=== PATIENT | female | born 1935 | race Caucasian/White ===

== ENCOUNTER 2019-09-06 10:46 | Inpatient (IN) | payer MEDICARE ==
[2019-09-06] MEDS ORDERED: NITROGLYCERIN OINT 1 INCH/GM PACKET TOPICAL STA (11:51)
[2019-09-06] MEDS ORDERED: ASPIRIN 81 MG PO STA (11:51)
--- NOTE | 2019-09-06 11:54 | ED ---
General Adult HPI - General Chief complaint: Recheck/Abnormal Lab/Rx Stated complaint: lab recheck-heart concerns Time Seen by Provider: 09/06/19 11:39 Source: patient, RN notes reviewed Mode of arrival: ambulatory Limitations: no limitations - History of Present Illness Initial comments: Patient is a pleasant 84-year-old female presenting to the emergency department after advised by her doctor. Patient states she had discomfort for several hours across her chest almost a week ago. Patient states no symptoms since that time. Patient states she saw her doctor yesterday and lab tests were done. Patient was called this morning and advised to come to emergency department. Patient is currently symptom-free. Patient does have some occasional neck discomfort however this is chronic and unchanged. No dyspnea, nausea, or diaphoresis. No leg pain or leg swelling. - Related Data Allergies Allergy/AdvReac Type Severity Reaction Status Date / Time eye drops Allergy Swelling Uncoded 09/06/19 11:40 Review of Systems ROS Statement: Those systems with pertinent positive or pertinent negative responses have been documented in the HPI. ROS Other: All systems not noted in ROS Statement are negative. Constitutional: Denies: fever Eyes: Denies: eye pain ENT: Denies: ear pain Respiratory: Denies: cough, dyspnea Cardiovascular: Reports: as per HPI Endocrine: Denies: fatigue Gastrointestinal: Denies: abdominal pain Genitourinary: Denies: dysuria Musculoskeletal: Denies: back pain Skin: Denies: rash Neurological: Denies: headache Past Medical History Past Medical History: No Reported History History of Any Multi-Drug Resistant Organisms: None Reported Past Surgical History: Cholecystectomy Past Psychological History: No Psychological Hx Reported Smoking Status: Never smoker Past Alcohol Use History: None Reported Past Drug Use History: None Reported General Exam Limitations: no limitations General appearance: alert, in no apparent distress Head exam: Present: normocephalic Eye exam: Present: normal appearance, PERRL ENT exam: Present: normal oropharynx Neck exam: Present: normal inspection Respiratory exam: Present: normal lung sounds bilaterally. Absent: chest wall tenderness Cardiovascular Exam: Present: regular rate, normal rhythm Expanded Peripheral pulses: 2+: Radial (R), Radial (L), Posterior Tibialis (R), Posterior Tibialis (L), Dorsalis Pedis (R), Dorsalis Pedis (L) GI/Abdominal exam: Present: soft. Absent: distended, tenderness Extremities exam: Present: normal inspection. Absent: pedal edema, calf tenderness Back exam: Present: normal inspection Neurological exam: Present: alert Psychiatric exam: Present: normal affect, normal mood Skin exam: Present: normal color Course Vital Signs 09/06/19 09/06/19 09/06/19 11:36 11:57 12:00 Temperature 98.0 F Pulse Rate 69 54 L 55 L Respiratory 20 14 16 Rate Blood Pressure 127/69 159/73 159/73 O2 Sat by Pulse 97 96 Oximetry 09/06/19 09/06/19 09/06/19 12:30 12:36 13:00 Temperature Pulse Rate 73 59 L 59 L Respiratory 18 16 15 Rate Blood Pressure 159/71 157/76 O2 Sat by Pulse 96 97 96 Oximetry - Reevaluation(s) Reevaluation #1: 09/06/19 13:32 Case was discussed with Dr. Jones, who will admit. EKG Findings - EKG Comments: EKG Findings:: Normal sinus rhythm 62. LA 132. QRS 90. QT 404. QTC 410. Normal axis. Normal QRS. Borderline ST depression laterally Medical Decision Making - Medical Decision Making Patient reevaluated and resting comfortably in bed. Patient updated on results and plan. Dr. Hardin has been paged for admission covering for hospital call. Cardiology will be placed on consult. - Lab Data Result diagrams: 09/06/19 11:57 09/06/19 11:57 Lab Results 09/06/19 09/06/19 09/06/19 Range/Units 11:57 11:57 11:57 WBC 5.9 (3.8-10.6) k/uL RBC 4.45 (3.80-5.40) m/uL Hgb 14.1 (11.4-16.0) gm/dL Hct 42.8 (34.0-46.0) % MCV 96.2 (80.0-100.0) fL MCH 31.8 (25.0-35.0) pg MCHC 33.0 (31.0-37.0) g/dL RDW 11.6 (11.5-15.5) % Plt Count 275 (150-450) k/uL Neutrophils % 62 % Lymphocytes % 27 % Monocytes % 7 % Eosinophils % 1 % Basophils % 1 % Neutrophils # 3.7 (1.3-7.7) k/uL Lymphocytes # 1.6 (1.0-4.8) k/uL Monocytes # 0.4 (0-1.0) k/uL Eosinophils # 0.1 (0-0.7) k/uL Basophils # 0.0 (0-0.2) k/uL PT 9.6 (9.0-12.0) sec INR 0.9 (<1.2) APTT 23.3 (22.0-30.0) sec D-Dimer 0.62 H (<0.60) mg/L FEU Sodium 139 (137-145) mmol/L Potassium 4.3 (3.5-5.1) mmol/L Chloride 104 (98-107) mmol/L Carbon Dioxide 28 (22-30) mmol/L Anion Gap 7 mmol/L BUN 14 (7-17) mg/dL Creatinine 0.86 (0.52-1.04) mg/dL Est GFR (CKD-EPI)AfAm 72 (>60 ml/min/1.73 sqM) Est GFR (CKD-EPI)NonAf 63 (>60 ml/min/1.73 sqM) Glucose 99 (74-99) mg/dL Calcium 9.7 (8.4-10.2) mg/dL Total Bilirubin 0.9 (0.2-1.3) mg/dL AST 34 (14-36) U/L ALT 20 (4-34) U/L Alkaline Phosphatase 92 (38-126) U/L Troponin I (0.000-0.034) ng/mL Total Protein 7.4 (6.3-8.2) g/dL Albumin 4.3 (3.5-5.0) g/dL 09/06/19 Range/Units 11:57 WBC (3.8-10.6) k/uL RBC (3.80-5.40) m/uL Hgb (11.4-16.0) gm/dL Hct (34.0-46.0) % MCV (80.0-100.0) fL MCH (25.0-35.0) pg MCHC (31.0-37.0) g/dL RDW (11.5-15.5) % Plt Count (150-450) k/uL Neutrophils % % Lymphocytes % % Monocytes % % Eosinophils % % Basophils % % Neutrophils # (1.3-7.7) k/uL Lymphocytes # (1.0-4.8) k/uL Monocytes # (0-1.0) k/uL Eosinophils # (0-0.7) k/uL Basophils # (0-0.2) k/uL PT (9.0-12.0) sec INR (<1.2) APTT (22.0-30.0) sec D-Dimer (<0.60) mg/L FEU Sodium (137-145) mmol/L Potassium (3.5-5.1) mmol/L Chloride (98-107) mmol/L Carbon Dioxide (22-30) mmol/L Anion Gap mmol/L BUN (7-17) mg/dL Creatinine (0.52-1.04) mg/dL Est GFR (CKD-EPI)AfAm (>60 ml/min/1.73 sqM) Est GFR (CKD-EPI)NonAf (>60 ml/min/1.73 sqM) Glucose (74-99) mg/dL Calcium (8.4-10.2) mg/dL Total Bilirubin (0.2-1.3) mg/dL AST (14-36) U/L ALT (4-34) U/L Alkaline Phosphatase (38-126) U/L Troponin I 1.130 H* (0.000-0.034) ng/mL Total Protein (6.3-8.2) g/dL Albumin (3.5-5.0) g/dL - Radiology Data Radiology results: image reviewed (Chest x-ray shows mild hyperinflation. Left suprahilar nodularity.) Critical Care Time Critical Care Time: Yes Total Critical Care Time: 31 Disposition Clinical Impression: NSTEMI (non-ST elevated myocardial infarction) Disposition: ADMITTED IP TO THIS [facility] Condition: Serious Is patient prescribed a controlled substance at d/c from ED?: No Referrals: Bryon Gao DO [Primary Care Provider] - 1-2 days Decision Time: 13:25
[2019-09-06 12:17] LABS: Basophils % (A) 1 %; Eosinophils # (A) 0.1 k/uL (0-0.7); Eosinophils % (A) 1 %; HCT 42.8 % (34.0-46.0); HGB 14.1 gm/dL (11.4-16.0); Lymphocytes # (A) 1.6 k/uL (1.0-4.8); Lymphocytes % (A) 27 %; MCH 31.8 pg (25.0-35.0); MCV 96.2 fL (80.0-100.0); Mean Platelet Volume 7.5; Monocytes # (A) 0.4 k/uL (0-1.0); Monocytes % (A) 7 %; Neutrophils # (A) 3.7 k/uL (1.3-7.7); Neutrophils % (A) 62 %; Platelet Count 275 k/uL (150-450); RBC 4.45 m/uL (3.80-5.40); RDW 11.6 % (11.5-15.5); WBC 5.9 k/uL (3.8-10.6)
[2019-09-06 12:26] LABS: Albumin 4.3 g/dL (3.5-5.0); Calcium 9.7 mg/dL (8.4-10.2); Potassium 4.3 mmol/L (3.5-5.1); Total Bilirubin 0.9 mg/dL (0.2-1.3); Total Protein 7.4 g/dL (6.3-8.2)
[2019-09-06 12:31] LABS: INR 0.9 (<1.2); Partial Thromboplastin Time 23.3 sec (22.0-30.0); Prothrombin Time 9.6 sec (9.0-12.0)
[2019-09-06 12:34] LABS: D-Dimer 0.62 mg/L FEU (<0.60)
--- NOTE | 2019-09-06 12:53 | XR ---
EXAMINATION TYPE: XR chest 2V DATE OF EXAM: 09/06/2019 COMPARISON: None HISTORY: 84-year-old female with chest pain TECHNIQUE: PA and lateral views FINDINGS: The heart is upper limits of normal in size. Hyperinflation with increased retrosternal clear space. Atherosclerotic arch calcifications. 6 mm left suprahilar nodularity likely hilar vessel on end. No c onsolidation or pleural effusion. IMPRESSION: 1. Mild hyperinflation could relate to depth of inspiration or underlying emphysema. Clinically corre late. 2. 6 mm nodularity left suprahilar region probably represents a prominent vessel on end. 6-8 week fol low-up recommended to reassess. 3. Otherwise, no acute process seen.
[2019-09-06] MEDS ORDERED: NITROGLYCERIN SL TABS 0.4 MG TAB SUBLINGUAL PRN (13:25)
[2019-09-06] MEDS ORDERED: HEPARIN SODIUM,PORCINE 5,000 UNIT/ML 1 ML VIAL IV ONE (13:25)
[2019-09-06] MEDS ORDERED: HEPARIN SODIUM,PORCINE 5,000 UNIT/ML 1 ML VIAL IV PRN (13:25)
[2019-09-06] MEDS: HEPARIN SOD,PORK IN 0.45% NACL 25,000 UNIT in 0.45% NACL 1 250ML.BAG IV SCH (14:13)
--- NOTE | 2019-09-06 16:32 | P.HPIM ---
History of Present Illness H&P Date: 09/06/19 Chief Complaint: atypical chest pain 84-year-old female with no significant past medical history. Patient comes in upon recommendations from her doctor due to abnormal blood work. She reports that a week ago she experienced atypical chest pain described as crushing pain wrapping around her chest not radiating. Not associated with any dizziness lightheadedness nausea vomiting or shortness of breath. She reported that pain lasted for couple hours she wasn't doing anything specific when she experienced it she rested for a few hours and then went away on its own. This patient is very active she reports mowing her own lawn shoveling snow and doing heavy chores around the house she is always active she volunteers 3 days out of the week. And she never have experienced any chest pain before. She has never had any cardiac workup except for back in 2016 when she thinks she had a stress test that was negative. This pain was a only one episode did not happen again however she went to see her doctor 2 days ago got some blood work done and then she was called today to come to the hospital because of abnormal blood work In the ED her troponins were elevated. EKG showed questionable ST abnormalities in lead V2 and V3 maybe with some depression and in lead L2. Otherwise unremarkable blood work Patient admitted for non-STEMI Review of Systems Pertinent positives as noted in HPI. All other systems were reviewed and are negative Past Medical History Past Medical History: No Reported History History of Any Multi-Drug Resistant Organisms: None Reported Past Surgical History: Cholecystectomy Past Psychological History: No Psychological Hx Reported Smoking Status: Never smoker Past Alcohol Use History: None Reported Past Drug Use History: None Reported - Past Family History Family Family Medical History: No Reported History Medications and Allergies Allergies Allergy/AdvReac Type Severity Reaction Status Date / Time eye drops Allergy Swelling Uncoded 09/06/19 11:40 Physical Exam Vitals: Vital Signs Temp Pulse Resp BP Pulse Ox 09/06/19 13:00 59 L 15 157/76 96 09/06/19 12:36 59 L 16 97 09/06/19 12:30 73 18 159/71 96 09/06/19 12:00 55 L 16 159/73 96 09/06/19 11:57 54 L 14 159/73 97 09/06/19 11:36 98.0 F 69 20 127/69 Intake and Output 09/06/19 09/06/19 09/06/19 06:59 14:59 22:59 Other: Weight 52.163 kg Constitutional: No acute distress, conversant, pleasant Eyes: Anicteric sclerae, moist conjunctiva, no lid-lag Pupils equal round reactive to light ENMT: NC/AT Oropharynx clear, no erythema, exudates Neck: Supple, FROM, no masses, or JVD No carotid bruits No thyromegaly Lungs: Clear to auscultation Clear to percussion Normal respiratory effort, no accessory muscle use Cardiovascular: Heart regular in rate and rhythm, No murmurs, gallops, or rubs No peripheral edema Abdominal: Soft Nontender, no guarding, rebound or rigidity Abdomen moving with respiration Normoactive bowel sounds No hepatomegaly, No splenomegaly No palpable mass No abdominal wall hernia noted Skin: Normal temperature, tone, texture, turgor No induration No subcutaneous nodules No rash, lesions No ulcers Extremities: No digital cyanosis No clubbing Pedal pulses intact and symmetrical Radial pulses intact and symmetrical No calf tenderness Psychiatric: Alert and oriented to person, place and time Appropriate affect fair judgement Neuro Muscles Strength 5/5 in all 4 extremities Sensation to light touch grossly present throughout Cranial nerves II-XII grossly intact No focal sensory deficits Lymphatics: no palpable cervical or supraclavicular , or inguinal lymph nodes Results CBC & Chem 7: 09/06/19 11:57 09/06/19 11:57 Labs: Abnormal Lab Results - Last 24 Hours (Table) 09/06/19 09/06/19 Range/Units 11:57 11:57 D-Dimer 0.62 H (<0.60) mg/L FEU Troponin I 1.130 H* (0.000-0.034) ng/mL Assessment and Plan Assessment: 84-year-old female no significant past medical history comes in due to recent episode of chest pain and elevated troponins suspected to have non-STEMI admitted for cardiac workup with anticipated length of stay less than 2 midnights Plan: An STEMI Atypical chest pain Heparin drip Trend troponins Aspirin and Lipitor Cardiology consult Cardiac monitoring Check lipid panel Nitro when necessary CODE STATUS: Full code DVT prophylaxis: On heparin drip per ACS Discussed with: Patient, ER, RN Anticipated length of stay less than [address]: Home A total of 60 minutes was spent on the care of this complex patient more than 50% of the time was spent in counseling and care coordination.
[2019-09-06] MEDS ORDERED: MELATONIN 3 MG TABLET PO PRN (21:00)
[2019-09-06] MEDS ORDERED: ATORVASTATIN 20 MG TAB PO SCH (21:00)
[2019-09-06] MEDS: NITROGLYCERIN OINT 1 INCH/GM PACKET TOPICAL SCH ×2 (21:17→23:41)
[2019-09-07] MEDS: NITROGLYCERIN OINT 1 INCH/GM PACKET TOPICAL SCH ×3 (05:07→16:21)
[2019-09-07 05:50] LABS: Basophils % (A) 1 %; Eosinophils # (A) 0.1 k/uL (0-0.7); Eosinophils % (A) 2 %; HCT 37.4 % (34.0-46.0); HGB 12.2 gm/dL (11.4-16.0); Lymphocytes # (A) 1.7 k/uL (1.0-4.8); Lymphocytes % (A) 37 %; MCH 31.5 pg (25.0-35.0); MCHC 32.8 g/dL (31.0-37.0); MCV 96.1 fL (80.0-100.0); Mean Platelet Volume 7.3; Monocytes # (A) 0.3 k/uL (0-1.0); Monocytes % (A) 6 %; Neutrophils # (A) 2.4 k/uL (1.3-7.7); Neutrophils % (A) 52 %; Platelet Count 225 k/uL (150-450); RBC 3.89 m/uL (3.80-5.40); RDW 11.7 % (11.5-15.5); WBC 4.6 k/uL (3.8-10.6)
[2019-09-07 06:33] LABS: Albumin 3.2 g/dL (3.5-5.0); Calcium 8.5 mg/dL (8.4-10.2); Potassium 3.9 mmol/L (3.5-5.1); Total Bilirubin 0.8 mg/dL (0.2-1.3); Total Protein 5.7 g/dL (6.3-8.2)
[2019-09-07] MEDS ORDERED: NITROGLYCERIN SL TABS 0.4 MG TAB SUBLINGUAL PRN ×2 (08:50→10:41)
[2019-09-07] MEDS ORDERED: ASPIRIN 325 MG TAB PO STA (08:50)
[2019-09-07] MEDS ORDERED: ALPRAZolam 0.25 MG TAB PO PRN (08:50)
[2019-09-07] MEDS ORDERED: ALPRAZolam 0.5 MG TAB PO PRN (08:50)
[2019-09-07] MEDS ORDERED: ATORVASTATIN 80 MG TAB PO STA (08:50)
[2019-09-07] MEDS ORDERED: SODIUM CHLORIDE 0.9% 1,000 ML in EMPTY BAG 1 BAG IV ONE (08:50)
--- NOTE | 2019-09-07 08:50 | P.CRDCN ---
History of Present Illness Consult date: 09/07/19 Requesting physician: Enedelia Tee Consult reason: non-Q-wave OR Chief complaint: Chest pain History of present illness: This is a pleasant 84-year-old female with a documented history of hypertension, no diabetes, no hyperlipidemia, nonsmoker, who has been quite active. She does take lisinopril at home when needed, if her blood pressure is accelerated. She states that on Thursday of last week she had chest pressure and heaviness that radiated across her chest and into her bilateral axillae area, and both arms. The symptoms came and went throughout the day on Thursday and she had some mild symptoms on Thursday. According to the patient, she was watching TV and they were describing the symptoms of a heart attack. Initially she thought her symptoms may be related to neck or back discomfort, but after seeing the commercial she decided to go and see her primary care physician. He advised that she come to the emergency room for further evaluation and treatment. Her initial EKG on presentation here showed a normal sinus rhythm with nonspecific ST-T wave changes in the inferior leads. Blood pressure 134/60 with a heart rate in the 50s to 60s, 97% on room air. White blood cell count 4.6, hemoglobin 12.2, platelet count 225. D-dimer 0.6. Sodium 139, potassium 3.9, BUN 14, creatinine 0.8. Troponins 1.1, 0.9, 0.9. Cholesterol 195, LDL 138, HDL 42, triglycerides 74. At the time of my examination this morning in the emergency room patient is chest pain-free. Past Medical History Past Medical History: No Reported History History of Any Multi-Drug Resistant Organisms: None Reported Past Surgical History: Cholecystectomy Past Psychological History: No Psychological Hx Reported Smoking Status: Never smoker Past Alcohol Use History: None Reported Past Drug Use History: None Reported - Past Family History Family Family Medical History: No Reported History Medications and Allergies Home Medications Medication Instructions Recorded Confirmed Type Aspirin EC [Ecotrin Low Dose] 81 mg PO DAILY 09/06/19 09/06/19 History Calcium Carbonate [Calcium] 600 mg PO HS 09/06/19 09/06/19 History Fish Oil W/Vitamin D3(Unknown Dose) 1 cap PO DAILY 09/06/19 09/06/19 History Garlic 1 tab PO DAILY 09/06/19 09/06/19 History Lisinopril [Prinivil] 10 mg PO HS 09/06/19 09/06/19 History Allergies Allergy/AdvReac Type Severity Reaction Status Date / Time eye drops Allergy Swelling Uncoded 09/06/19 16:58 Physical Exam Vitals: Vital Signs Temp Pulse Pulse Resp BP BP Pulse Ox 09/07/19 03:14 53 L 16 134/65 97 09/07/19 00:00 66 16 158/78 99 09/06/19 21:12 97 09/06/19 20:00 97.4 F L 67 16 163/78 97 09/06/19 18:31 72 18 139/73 97 09/06/19 13:00 59 L 15 157/76 96 09/06/19 12:36 59 L 16 97 09/06/19 12:30 73 18 159/71 96 09/06/19 12:00 55 L 16 159/73 96 09/06/19 11:57 54 L 14 159/73 97 09/06/19 11:36 98.0 F 69 20 127/69 Intake and Output 09/06/19 09/07/19 09/07/19 22:59 06:59 14:59 Intake Total 39.751 49.465 Balance 39.751 49.465 Intake: Intake, IV Titration 39.751 49.465 Amount Heparin Sod,Pork in 0.45% 39.751 49.465 NaCl 25,000 unit In 0.45 % NaCl 1 250ml.bag @ 12 UNITS/KG/HR 6.26 mls/hr IV .Q24H [facility] Rx#: [id number] Other: # Voids 1 1 PHYSICAL EXAMINATION: GENERAL: 84-year-old female in no acute distress at the time of my examination HEENT: Head is atraumatic, normocephalic. Pupils equal, round. Sclera anicteric. Conjunctiva are clear. Mucous membranes of the mouth are moist. Neck is supple. There is no elevated jugular venous pressure. No carotid bruit is heard. HEART EXAMINATION: Heart S1, S2 normal. No murmur or gallop heard. CHEST EXAMINATION: Lungs are clear to auscultation and precussion. No chest wall tenderness is noted on palpation or with deep breathing. ABDOMEN: Soft, nontender. Bowel sounds are heard. No organomegaly noted. EXTREMITIES: 2+ peripheral pulses with no evidence of peripheral edema and no calf tenderness noted. NEUROLOGIC patient is awake, alert and oriented 3 . . Results 09/07/19 05:30 09/07/19 05:30 Cardiac Enzymes 09/06/19 09/06/19 09/06/19 Range/Units 11:57 11:57 19:34 AST 34 (14-36) U/L Troponin I 1.130 H* 0.987 H* (0.000-0.034) ng/mL 09/07/19 09/07/19 Range/Units 00:15 05:30 AST 27 (14-36) U/L Troponin I 0.912 H* (0.000-0.034) ng/mL Coagulation 09/06/19 09/06/19 09/07/19 Range/Units 11:57 19:34 02:39 PT 9.6 (9.0-12.0) sec APTT 23.3 74.9 H 48.8 H (22.0-30.0) sec 09/07/19 Range/Units 05:30 PT (9.0-12.0) sec APTT 45.2 H (22.0-30.0) sec Lipids 09/07/19 Range/Units 05:30 Triglycerides 74 (<150) mg/dL Cholesterol 195 (<200) mg/dL HDL Cholesterol 42 (40-60) mg/dL CBC 09/06/19 09/07/19 Range/Units 11:57 05:30 WBC 5.9 4.6 (3.8-10.6) k/uL RBC 4.45 3.89 (3.80-5.40) m/uL Hgb 14.1 12.2 (11.4-16.0) gm/dL Hct 42.8 37.4 (34.0-46.0) % Plt Count 275 225 (150-450) k/uL Comprehensive Metabolic Panel 09/06/19 09/07/19 Range/Units 11:57 05:30 Sodium 139 139 (137-145) mmol/L Potassium 4.3 3.9 (3.5-5.1) mmol/L Chloride 104 110 H (98-107) mmol/L Carbon Dioxide 28 24 (22-30) mmol/L BUN 14 14 (7-17) mg/dL Creatinine 0.86 0.81 (0.52-1.04) mg/dL Glucose 99 91 (74-99) mg/dL Calcium 9.7 8.5 (8.4-10.2) mg/dL AST 34 27 (14-36) U/L ALT 20 16 (4-34) U/L Alkaline Phosphatase 92 69 (38-126) U/L Total Protein 7.4 5.7 L (6.3-8.2) g/dL Albumin 4.3 3.2 L (3.5-5.0) g/dL Current Medications Generic Name Dose Route Start Last Admin Trade Name Freq PRN Reason Stop Dose Admin Aspirin 325 mg 09/07/19 09:00 Aspirin PO DAILY [facility] Atorvastatin Calcium 20 mg 09/06/19 21:00 09/06/19 21:18 Lipitor PO Not Given HS [facility] Heparin Sodium (Porcine) 0 unit 09/06/19 13:25 Heparin IV Q6HR PRN Low PTT Protocol Heparin Sodium/Sodium Chloride 250 mls @ 6.26 mls/hr 09/06/19 13:30 09/07/19 06:03 25,000 unit/ Sodium Chloride IV 10 units/kg/hr .Q24H [facility] 5.216 mls/hr Titration Protocol 12 UNITS/KG/HR Melatonin 3 mg 09/06/19 21:00 Melatonin PO HS PRN Insomnia Nitroglycerin 0.4 mg 09/06/19 13:25 Nitrostat SUBLINGUAL Q5M PRN Chest Pain Nitroglycerin 1 inch 09/06/19 18:00 09/07/19 05:07 Nitro-Bid Oint TOPICAL Not Given Q6HR [facility] Sodium Chloride 10 ml 09/06/19 21:00 09/06/19 21:18 Saline Flush IV 10 ml BID DANILO Administration Intake and Output 09/06/19 09/07/19 09/07/19 22:59 06:59 14:59 Intake Total 39.751 49.465 Balance 39.751 49.465 Intake: Intake, IV Titration 39.751 49.465 Amount Heparin Sod,Pork in 0.45% 39.751 49.465 NaCl 25,000 unit In 0.45 % NaCl 1 250ml.bag @ 12 UNITS/KG/HR 6.26 mls/hr IV .Q24H [facility] Rx#: [id number] Other: # Voids 1 1 09/07/19 05:30 09/07/19 05:30 EKG Interpretations (text) EKG shows a normal sinus rhythm with nonspecific ST-T wave changes noted in the inferior leads Assessment and Plan Plan: Assessment and plan #1 non-ST elevation OR #2 hypertension Plan Patient has been advised to undergo cardiac catheterization, the risks and the benefits of the procedure were explained to the patient in detail and she is willing to proceed. We will obtain an echocardiogram with Doppler study. Continue an aspirin daily, Lipitor, IV heparin, and Nitropaste. Further recommendations will be based on the findings of her procedure and the patient's clinical course. DNP note has been reviewed, I agree with a documented findings and plan of care. Patient was seen and examined.
[2019-09-07] MEDS ORDERED: VERAPAMIL 2.5 MG/ML 2 ML AMP ONE (09:08)
[2019-09-07] MEDS ORDERED: LIDOCAINE 1% INJ 10MG/ML (20 ML MDV) ONE (09:08)
[2019-09-07] MEDS: MIDAZOLAM 2 MG/2 ML VIAL IV ONE ×2 (09:51→09:54)
[2019-09-07] MEDS ORDERED: LIDOCAINE 1% INJ 10MG/ML (20 ML MDV) SQ ONE (09:54)
[2019-09-07] MEDS ORDERED: BIVALIRUDIN BOLUS 250 MG/50 ML IV ONE (10:12)
[2019-09-07] MEDS ORDERED: BIVALIRUDIN 250 MG in SODIUM CHLORIDE 0.9% 50 ML IV ONE (10:13)
[2019-09-07] MEDS ORDERED: IV FLUID CONTINUATION 800 ML IV ONE (10:14)
[2019-09-07] MEDS: NITROGLYCERIN 1000MCG/10ML SYRINGE INTRACORON ONE ×2 (10:19→10:32)
[2019-09-07] MEDS ORDERED: CLOPIDOGREL 75 MG TAB ONE (10:21)
[2019-09-07] MEDS ORDERED: IOPAMIDOL-370 125ML BTL INJ ONE (10:25)
[2019-09-07] MEDS ORDERED: CLOPIDOGREL 75 MG TAB PO ONE (10:25)
[2019-09-07] MEDS ORDERED: IOPAMIDOL-370 100ML BTL INJ ONE (10:30)
[2019-09-07] MEDS ORDERED: ZOLPIDEM 5 MG TAB PO PRN (10:41)
[2019-09-07] MEDS ORDERED: RX INFO: IV CONTRAST WAS GIVEN 1 EACH MISC MISCELLANE PRN (10:41)
[2019-09-07] MEDS ORDERED: MAG HYDROX/AL HYDROX/SIMETH 30 ML CUP PO PRN (10:41)
[2019-09-07] MEDS ORDERED: ATROPINE SULFATE 0.1 MG/ML 10ML SYRINGE IV PRN (10:41)
[2019-09-07] MEDS ORDERED: SODIUM CHLORIDE 0.9% 1,000 ML IV SCH (10:45)
--- NOTE | 2019-09-07 10:57 | ECHOF ---
Referral Reason:nstemi MEASUREMENTS -------- HEIGHT: 152.4 cm WEIGHT: 52.2 kg BP: 157/76 RVIDd: 3.0 cm (< 3.3) IVSd: 1.1 cm (0.6 - 1.1) LVIDd: 4.0 cm (3.9 - 5.3) LVPWd: 1.2 cm (0.6 - 1.1) IVSs: 1.4 cm LVIDs: 2.5 cm LVPWs: 1.6 cm LAESV Index (A-L): 32.30 ml/m Ao Diam: 2.9 cm (2.0 - 3.7) AV Cusp: 1.5 cm (1.5 - 2.6) MV E Arvin: 0.85 m/s MV DecT: 237 ms MV A Arvin: 0.93 m/s MV E/A Ratio: 0.91 RAP: 5.00 mmHg RVSP: 41.24 mmHg FINDINGS -------- Sinus rhythm. This was a technically adequate study. The left ventricular size is normal. There is mild concentric left ventricular hypertrophy. Overa ll left ventricular systolic function is normal with, an EF between 55 - 60 %. The diastolic fillin g pattern is normal for the age of the patient 12.34. The right ventricle is mildly enlarged. LA is midly dilated 29-33ml/m2. The right atrial size is normal. Interatrial and interventricular septum intact. There is mild aortic valve sclerosis. There is no evidence of aortic regurgitation. There is no e vidence of aortic stenosis. Moderate mitral regurgitation is present. [id number] tricuspid regurgitation present. There is mild to moderate pulmonary hypertension. The right ventricular systolic pressure, as measured by Doppler, is 41.24mmHg. The pulmonic valve was not well visualized. There is no pulmonic regurgitation present. The aortic root size is normal. IVC Not well visulized. There is no pericardial effusion. CONCLUSIONS -------- 1. Sinus rhythm. 2. This was a technically adequate study. 3. The left ventricular size is normal. 4. There is mild concentric left ventricular hypertrophy. 5. Overall left ventricular systolic function is normal with, an EF between 55 - 60 %. 6. The diastolic filling pattern is normal for the age of the patient 12.34 7. The right ventricle is mildly enlarged. 8. LA is midly dilated 29-33ml/m2. 9. The right atrial size is normal. 10. Interatrial and interventricular septum intact. 11. There is mild aortic valve sclerosis. 12. There is no evidence of aortic regurgitation. 13. There is no evidence of aortic stenosis. 14. Moderate mitral regurgitation is present. 15. [id number] tricuspid regurgitation present. 16. There is mild to moderate pulmonary hypertension. 17. The right ventricular systolic pressure, as measured by Doppler, is 41.24mmHg. 18. The pulmonic valve was not well visualized. 19. There is no pulmonic regurgitation present. 20. The aortic root size is normal. 21. IVC Not well visulized. 22. There is no pericardial effusion. PHYSICIAN SCRIBE: Daisha Goyal RDCS
--- NOTE | 2019-09-07 11:19 | CC ---
CARDIAC CATHETERIZATION REPORT CARDIAC CATHETERIZATION AND PERCUTANEOUS CORONARY INTERVENTION: DATE OF SERVICE: September 07, 2019 PERFORMING PHYSICIAN: Yo Hilliard MD. PROCEDURE PERFORMED: 1. Selective right and left coronary angiogram. 2. Left heart catheterization. 3. Successful stenting of the first obtuse marginal branch of the left circumflex using 2.5 x 12 mm Xience RAPHAEL with excellent angiographic results and reduction of stenosis from 99% to 0%. 4. Successful stenting of the proximal left circumflex using 3.25 x 15 mm Xience RAPHAEL with excellent angiographic results and reduction of stenosis from 90% to 0%. INDICATION: This is an 84-year-old female patient with history of hypertension and dyslipidemia who presented to the emergency room with a chest discomfort and ruled in for acute non-ST- elevation myocardial infarction. She was brought today to undergo a heart catheterization. The patient is an 84-year-old, but she is in great physical and mental shape. APPROACH: Right common femoral artery. COMPLICATION: None. LEVEL OF SEDATION: Moderate with sedation length of 43 minutes. PROCEDURE DESCRIPTION: After obtaining an informed consent, the patient was brought to the cardiac collaborating supervising physician. The right common femoral artery was cannulated using micropuncture technique, the micropuncture wire passed easily then I placed a 6-Lao sheath in the right groin. After that I did selective right and left coronary angiogram. That was performed using a Alexsander right catheter for the right coronary artery and JL3.5 for the left coronary system. After that I did left heart catheterization using 6-Lao pigtail catheter. After that I did intervene on the left circumflex, please see a separate paragraph for that. SELECTIVE CORONARY ANGIOGRAM: 1. The right coronary artery is a large caliber vessel and it is a dominant vessel. The RCA has intermediate disease in the midportion. Distally, it bifurcates into PDA and PLV branches both appeared to be angiographically normal. 2. The left main is angiographically normal. It bifurcates into left circumflex and left anterior descending artery. 3. The left circumflex is a large caliber vessel and it is a nondominant vessel. The proximal left circumflex has a critical lesion appeared to be in the range of 80% to 90%. This is by the bifurcation of the first OM branch which has a lesion appeared to be in the range of 99.9%. The mid circumflex gives rise into a second OM branch which appeared to have mild disease only and the circumflex continues after that in the AV groove bypass as a small caliber vessel with a tight lesion as well. 4. The LAD: The proximal LAD by the bifurcation from the left main has a critical lesion appeared to be in the range of 80% to 90%. The mid LAD has long tubular lesion appeared to be in the range of 80%. The LAD distally has another lesion as well, appeared to be in the range of 70% to 80%. HEMODYNAMICS: The LVEDP was was 4 mmHg without significant gradient across aortic valve. PCI OF THE LEFT CIRCUMFLEX: Anticoagulation was achieved with Angiomax with bolus and drip per protocol. Subsequently I did engage the left main using JL3.5 guide. I did wire the OM1 using a whisper wire. After that balloon angioplasty was performed using 2.0 x 12 mm balloon before I deployed 2.5 x 12 mm Xience RAPHAEL where the stent was positioned under fluoroscopy guidance and deployed under its nominal pressure with the following angiogram showing good angiographic results. Subsequently, I redirected my wire toward the left circumflex and then OM2. I did direct stenting of the lesion in the proximal left circumflex across OM1 using 3.25 x 15 mm Xience where the stent was positioned under fluoroscopy guidance and deployed under its nominal pressure. I postdilated the stent using 3.25 mm NC balloon. The final angiogram showed great angiographic results and the procedure was completed without any complication. CONCLUSION: 1. Critical 2-vessel coronary artery disease involving the left circumflex as well as left anterior descending artery. 2. Successful stenting of the left circumflex as well as first obtuse marginal branch as described above. 3. The patient will be brought to undergo a PCI of the LAD in the next 24 to 48 hours. POSTPROCEDURE MANAGEMENT: 1. Dual antiplatelet therapy. 2. Risk factor modifications. 3. Follow up with the patient. MMODL / IJN: [id number] /
--- NOTE | 2019-09-07 13:35 | P.PN ---
Subjective Progress Note Date: 09/07/19 Principal diagnosis: follow up for NSTEMI Patient seen and examined post left heart cath tolerated procedure well patient had 2 stents inserted Again she denies any chest pain or trouble breathing Tolerated by mouth intake Objective - Vital Signs Vital signs: Vital Signs Temp 97.4 F L 09/06/19 20:00 Pulse 57 L 09/07/19 13:16 Resp 16 09/07/19 11:26 BP 112/56 09/07/19 13:16 Pulse Ox 94 L 09/07/19 11:26 Intake & Output 09/06/19 09/07/19 09/07/19 18:59 06:59 18:59 Intake Total 89.216 112 Balance 89.216 112 Weight 52.163 kg Intake: IV 112 Intake, IV Titration 89.216 Amount Heparin Sod,Pork in 0.45% 89.216 NaCl 25,000 unit In 0.45 % NaCl 1 250ml.bag @ 12 UNITS/KG/HR 6.26 mls/hr IV .Q24H [facility] Rx#: [id number] Other: # Voids 1 - Exam Constitutional: vital signs stable, Not in acute distress, pleasant, conversant Lungs: Clear to auscultation bilaterally, clear to percussion, normal respiratory effort Cardiovascular: Regular rate and rhythm, no murmurs, no gallops, no rubs, no peripheral edema Gastrointestinal: Soft, no tenderness to palpation, bowel sounds positive, Extremities: No digital cyanosis or clubbing, peripheral pulses palpable and e qual , no calf muscle tenderness Psych: Alert, oriented to place, person and time, appropriate affect, intact judgment - Labs CBC & Chem 7: 09/07/19 05:30 09/07/19 05:30 Labs: Abnormal Lab Results - Last 24 Hours (Table) 09/06/19 09/06/19 09/07/19 Range/Units 19:34 19:34 00:15 APTT 74.9 H (22.0-30.0) sec Chloride (98-107) mmol/L Troponin I 0.987 H* 0.912 H* (0.000-0.034) ng/mL Total Protein (6.3-8.2) g/dL Albumin (3.5-5.0) g/dL LDL Cholesterol, Calc (0-99) mg/dL 0209/07/19 09/07/19 Range/Units 02:39 05:30 05:30 APTT 48.8 H 45.2 H (22.0-30.0) sec Chloride 110 H (98-107) mmol/L Troponin I (0.000-0.034) ng/mL Total Protein 5.7 L (6.3-8.2) g/dL Albumin 3.2 L (3.5-5.0) g/dL LDL Cholesterol, Calc 138 H (0-99) mg/dL Assessment and Plan Assessment: 84-year-old female no significant past medical history comes in due to recent episode of chest pain and elevated troponins suspected to have non-STEMI admitted for cardiac workup 09/07 Left heart cath showed 2 vessel disease Status post stenting left circumflex and first obtuse Plans for staged stenting of left anterior descending within 24-48 hours Echocardiogram showed left ventricle ejection fraction of 60% Plan: NSTEMI Atypical chest pain Left heart cath showed 2 vessel disease status post stenting of left circumflex and first obtuse Plans for stenting of LAD within 24-48 hours Continue with dual antiplatelet therapy Continue with Lipitor Nitro when necessary Cardiology consult Cardiac monitoring Discharge planning home once cleared by cardiology
[2019-09-07 14:20] VITALS: BMI 22.4
[2019-09-07] MEDS: ASPIRIN 325 MG TAB PO SCH (14:29)
[2019-09-07] MEDS: HEPARIN SOD,PORK IN 0.45% NACL 25,000 UNIT in 0.45% NACL 1 250ML.BAG IV SCH (14:30)
[2019-09-07] MEDS: LATANOPROST 0.005% OPHTH DROPS 2.5 ML BTL BOTH EYES SCH (20:09)
[2019-09-07] MEDS: ATORVASTATIN 80 MG TAB PO SCH (20:10)
[2019-09-07] MEDS: METOPROLOL TARTRATE 25 MG TAB PO SCH (20:10)
[2019-09-08 06:26] LABS: Mean Platelet Volume 7.4; Platelet Count 225 k/uL (150-450)
[2019-09-08] MEDS: CLOPIDOGREL 75 MG TAB PO SCH (08:04)
[2019-09-08] MEDS: ASPIRIN 325 MG TAB PO SCH (08:04)
[2019-09-08] MEDS: METOPROLOL TARTRATE 25 MG TAB PO SCH ×2 (08:04→21:33)
--- NOTE | 2019-09-08 12:02 | P.PN ---
Subjective Progress Note Date: 09/08/19 This is a pleasant 84-year-old female with a documented history of hypertension, no diabetes, no hyperlipidemia, nonsmoker, who has been quite active. She does take lisinopril at home when needed, if her blood pressure is accelerated. She states that on Thursday of last week she had chest pressure and heaviness that radiated across her chest and into her bilateral axillae area, and both arms. The symptoms came and went throughout the day on Thursday and she had some mild symptoms on Thursday. According to the patient, she was watching TV and they were describing the symptoms of a heart attack. Initially she thought her symptoms may be related to neck or back discomfort, but after seeing the commercial she decided to go and see her primary care physician. He advised that she come to the emergency room for further evaluation and treatment. Her initial EKG on presentation here showed a normal sinus rhythm with nonspecific ST-T wave changes in the inferior leads. Blood pressure 134/60 with a heart rate in the 50s to 60s, 97% on room air. White blood cell count 4.6, hemoglobin 12.2, platelet count 225. D-dimer 0.6. Sodium 139, potassium 3.9, BUN 14, creatinine 0.8. Troponins 1.1, 0.9, 0.9. Cholesterol 195, LDL 138, HDL 42, triglycerides 74. At the time of my examination this morning in the emergency room patient is chest pain-free. 09/08/2019 Patient seen and examined this morning, denies any chest pain, no difficulty in breathing. She does state that she feels mildly tired today. Blood pressure 126/60 with a heart rate in the 70s, 98% on room air. Echocardiogram with Doppler study was performed which revealed an ejection fraction of 55-60%. Mild to moderate tricuspid regurg with moderate mitral regurgitation. I did have a lengthy discussion with the patient this morning explaining that we would like to continue to observe her for another 24 hours. If the patient has any symptoms of chest discomfort or exertional shortness of breath, her LAD will be stented during this admission, if the patient remains pain-free until tomorrow at our reevaluation, she may be able to be discharged home and come back electively for LAD stenting with Impella support. Objective - Vital Signs Vital signs: Vital Signs Temp 97.7 F 09/08/19 08:00 Pulse 74 09/08/19 08:00 Resp 18 09/08/19 08:00 BP 126/59 09/08/19 08:00 Pulse Ox 98 09/08/19 08:00 Intake & Output 09/07/19 09/08/19 09/08/19 18:59 06:59 18:59 Intake Total 112 1765 240 Balance 112 1765 240 Weight 52.163 kg 51.7 kg Intake: IV 112 Intake, IV Titration 1525 Amount Sodium Chloride 0.9% 1, 1525 000 ml @ 75 mls/hr IV . [id number] [facility] Rx#:[id number] Oral 240 240 Other: Voiding Method Toilet # Voids 2 3 # Bowel Movements 1 - Exam PHYSICAL EXAMINATION: GENERAL: 84-year-old female in no acute distress at the time of my examination HEENT: Head is atraumatic, normocephalic. Pupils equal, round. Sclera anicteric. Conjunctiva are clear. Mucous membranes of the mouth are moist. N joseph is supple. There is no elevated jugular venous pressure. No carotid bruit is heard. HEART EXAMINATION: Heart S1, S2 normal. No murmur or gallop heard. CHEST EXAMINATION: Lungs are clear to auscultation and precussion. No chest wall tenderness is noted on palpation or with deep breathing. ABDOMEN: Soft, nontender. Bowel sounds are heard. No organomegaly noted. EXTREMITIES: 2+ peripheral pulses with no evidence of peripheral edema and no calf tenderness noted. NEUROLOGIC patient is awake, alert and oriented 3 . . - Labs CBC & Chem 7: 09/08/19 05:45 09/08/19 05:45 Assessment and Plan Plan: Assessment and plan #1 non-ST elevation DE, status post successful stenting of the first obtuse marginal branch of the circumflex and stenting of the proximal circumflex. Patient was also found to have proximal LAD, by the bifurcation, critical lesion in the range of 80-90%. The mid LAD has a long lesion in the range of 80%, distal LAD has another lesion in the range of 70-80% #2 hypertension Plan The patient has been encouraged to be up ambulating today. If she remains symptom-free we will discharge her home tomorrow. If the patient has any symptoms, the LAD will be stented during this admission. It will require Impella support. DNP note has been reviewed, I agree with a documented findings and plan of care. Patient was seen and examined.
[2019-09-08] MEDS ORDERED: ALPRAZolam 0.5 MG TAB PO PRN (15:54)
[2019-09-08] MEDS ORDERED: SODIUM CHLORIDE 0.9% 1,000 ML in EMPTY BAG 1 BAG IV ONE (15:54)
[2019-09-08] MEDS ORDERED: ALPRAZolam 0.25 MG TAB PO PRN (15:54)
[2019-09-08] MEDS ORDERED: ATORVASTATIN 80 MG TAB PO STA (15:54)
[2019-09-08] MEDS ORDERED: ASPIRIN 325 MG TAB PO STA (15:54)
[2019-09-08] MEDS ORDERED: HEPARIN SODIUM,PORCINE 5,000 UNIT/ML 1 ML VIAL IV PRN (15:56)
[2019-09-08] MEDS ORDERED: HEPARIN SOD,PORK IN 0.45% NACL 25,000 UNIT in 0.45% NACL 1 250ML.BAG IV SCH (16:00)
[2019-09-08] MEDS: NITROGLYCERIN SL TABS 0.4 MG TAB SUBLINGUAL PRN ×2 (16:05→16:10)
[2019-09-08 16:13] LABS: Basophils % (A) 0 %; Eosinophils # (A) 0.2 k/uL (0-0.7); Eosinophils % (A) 3 %; HCT 38.5 % (34.0-46.0); HGB 12.6 gm/dL (11.4-16.0); Lymphocytes # (A) 1.1 k/uL (1.0-4.8); Lymphocytes % (A) 18 %; MCH 32.1 pg (25.0-35.0); MCHC 32.6 g/dL (31.0-37.0); MCV 98.6 fL (80.0-100.0); Mean Platelet Volume 8.4; Monocytes # (A) 0.4 k/uL (0-1.0); Monocytes % (A) 6 %; Neutrophils # (A) 4.2 k/uL (1.3-7.7); Neutrophils % (A) 71 %; Platelet Count 229 k/uL (150-450); RBC 3.91 m/uL (3.80-5.40); RDW 11.6 % (11.5-15.5); WBC 5.9 k/uL (3.8-10.6)
[2019-09-08] MEDS ORDERED: HEPARIN SODIUM,PORCINE 5,000 UNIT/ML 1 ML VIAL IV ONE (16:15)
[2019-09-08] MEDS: HEPARIN SODIUM,PORCINE 5,000 UNIT/ML 1 ML VIAL SQ SCH ×2 (16:21→21:33)
[2019-09-08 16:28] LABS: Prothrombin Time 10.2 sec (9.0-12.0)
[2019-09-08] MEDS: NITROGLYCERIN-D5W PMX 50 MG in DEXTROSE/WATER 1 250ML.BAG IV SCH (16:33)
[2019-09-08] MEDS ORDERED: LIDOCAINE 1% INJ 10MG/ML (20 ML MDV) ONE (17:49)
[2019-09-08] MEDS ORDERED: SODIUM CHLORIDE 0.9% 1,000 ML IV ONE (18:00)
[2019-09-08] MEDS ORDERED: MIDAZOLAM 2 MG/2 ML VIAL IV ONE (18:05)
[2019-09-08] MEDS ORDERED: LIDOCAINE 1% INJ 10MG/ML (20 ML MDV) SQ ONE (18:06)
[2019-09-08] MEDS ORDERED: BIVALIRUDIN 250 MG in SODIUM CHLORIDE 0.9% 50 ML IV ONE (18:08)
[2019-09-08] MEDS ORDERED: BIVALIRUDIN BOLUS 250 MG/50 ML IV ONE (18:08)
[2019-09-08] MEDS: NITROGLYCERIN 1000MCG/10ML SYRINGE INTRACORON ONE ×3 (18:10→18:36)
[2019-09-08] MEDS ORDERED: IOPAMIDOL-370 125ML BTL INJ ONE (18:32)
[2019-09-08] MEDS ORDERED: CLOPIDOGREL 75 MG TAB ONE (18:43)
[2019-09-08] MEDS ORDERED: CLOPIDOGREL 75 MG TAB PO ONE (18:44)
[2019-09-08] MEDS ORDERED: IOPAMIDOL-370 100ML BTL INJ ONE (18:47)
[2019-09-08] MEDS ORDERED: ATROPINE SULFATE 0.1 MG/ML 10ML SYRINGE IV PRN (18:53)
[2019-09-08] MEDS ORDERED: MAG HYDROX/AL HYDROX/SIMETH 30 ML CUP PO PRN (18:53)
[2019-09-08] MEDS ORDERED: NITROGLYCERIN SL TABS 0.4 MG TAB SUBLINGUAL PRN (18:53)
[2019-09-08] MEDS ORDERED: RX INFO: IV CONTRAST WAS GIVEN 1 EACH MISC MISCELLANE PRN (18:53)
[2019-09-08] MEDS ORDERED: ZOLPIDEM 5 MG TAB PO PRN (18:53)
[2019-09-08] MEDS ORDERED: SODIUM CHLORIDE 0.9% 1,000 ML IV SCH (19:00)
[2019-09-08] MEDS: LATANOPROST 0.005% OPHTH DROPS 2.5 ML BTL BOTH EYES SCH (21:30)
[2019-09-08] MEDS: ATORVASTATIN 80 MG TAB PO SCH (21:33)
--- NOTE | 2019-09-08 23:57 | CC ---
CARDIAC CATHETERIZATION REPORT DATE OF SERVICE: 09/08/2019 PERFORMING PHYSICIAN: Yo Hilliard MD. PROCEDURES PERFORMED: 1. Selective left coronary angiogram. 2. Left heart catheterization. 3. Successful stenting of the mid left anterior descending artery using 2.0 x 30 mm [place] RAPHAEL with an excellent angiographic result. 4. Successful stenting of the proximal left anterior descending artery using 2.5 x 23 mm Xience RAPHAEL with an excellent angiographic result. INDICATION: This is an 84-year-old female patient who presented to the hospital initially 2 days ago with acute jhl-JC-ytuhlkbcl myocardial infarction. She underwent a heart catheterization and was found to have severe 2-vessel coronary artery disease involving the LCX and LAD. She underwent PCI of OM1 and left circumflex and she was scheduled to undergo a PCI of the LAD tomorrow. Because she continues to have chest discomfort, she was brought today to undergo an intervention on the LAD and also to look to check the stents in the LCX. APPROACH: Right common femoral artery. COMPLICATIONS: None. LEVEL OF SEDATION: Moderate, with sedation length of 41 minutes. PROCEDURE DESCRIPTION: After obtaining informed consent, the patient was brought to the cardiac cath lab technologist. The right common femoral artery was cannulated using micropuncture technique. The micropuncture wire passed easily. Then I placed a 6-Belarusian sheath at the right common femoral artery. After that I did selective left coronary angiogram using JL3.5 guide. After that I did intervene on the LAD. Please see separate paragraph for that. Subsequently I did left heart catheterization using 6-Belarusian pigtail catheter. The procedure was completed without any complication. SELECTIVE CORONARY ANGIOGRAM: 1. The left main is a large-caliber vessel. It is angiographically normal. It bifurcates into LCX and LAD. 2. The LCX is a large-caliber vessel and it is a nondominant vessel. The proximal LCX is stented and the stent is patent. The proximal LCX gives rise to an OM1, which is a large-caliber vessel and seems to be angiographically normal. The mid circumflex appeared to be angiographically normal and gives rise to OM2, which seems to be normal. The circumflex continues after that as a small- to medium- caliber vessel in the AV groove with a tight lesion that appeared to be in the range of 80% to 90%. 3. The LAD. The very proximal LAD appeared to have a lesion in the range of 80% to 90%. The mid LAD has a long tubular lesion in the range of 80% to 90%. The LAD distally appeared to have another lesion in the range of 60% to 70%. PERCUTANEOUS CORONARY INTERVENTION OF THE LAD: Anticoagulation was initiated using Angiomax. The LAD was wired using a Whisper J wire after it was engaged using JL3.5 guide. After that I did balloon angioplasty of the LAD in the mid portion using 2.0 x 12 mm balloon. After that I did stenting of the LAD in the mid portion using 2.0 x 30 mm [place] RAPHAEL where the stent was positioned under fluoroscopic guidance and deployed under its nominal pressure. After that, for the stent in the very proximal LAD, I deployed 2.5 x 23 mm Xience RAPHAEL where the stent was positioned under fluoroscopic guidance and deployed under its nominal pressure as well. I post-dilated the stent using 2.75 mm NC balloon. The following angiogram showed excellent angiographic results. There was a lesion in the distal LAD that appeared to be in the range of 70%. I decided to leave it alone. HEMODYNAMICS: The LVEDP was about 8 mmHg without significant gradient across the aortic valve. CONCLUSION: 1. Patent stents in the proximal left circumflex as well as OM1 of the left circumflex. There was a tight lesion in the distal left circumflex, but the artery is only of small to medium caliber. 2. Successful stenting of the proximal and mid left anterior descending artery with an excellent angiographic result. There is distal lesion in the distal LAD that appeared to be in the range of 70%. POST-PROCEDURE MANAGEMENT: 1. Maximize medical treatment. 2. Follow up with the patient. 3. PCI of the distal LAD as well as distal LCX if the patient continues to be symptomatic. MMODL / IJN: [id number] /
[2019-09-09 06:04] LABS: Basophils % (A) 0 %; Eosinophils # (A) 0.1 k/uL (0-0.7); Eosinophils % (A) 1 %; HGB 11.8 gm/dL (11.4-16.0); Lymphocytes % (A) 20 %; MCH 32.1 pg (25.0-35.0); MCHC 33.7 g/dL (31.0-37.0); MCV 95.3 fL (80.0-100.0); Mean Platelet Volume 7.2; Monocytes # (A) 0.5 k/uL (0-1.0); Monocytes % (A) 10 %; Neutrophils # (A) 3.2 k/uL (1.3-7.7); Neutrophils % (A) 66 %; Platelet Count 235 k/uL (150-450); RBC 3.67 m/uL (3.80-5.40); RDW 11.5 % (11.5-15.5); WBC 4.9 k/uL (3.8-10.6)
[2019-09-09 06:14] LABS: Calcium 8.5 mg/dL (8.4-10.2); Potassium 3.8 mmol/L (3.5-5.1)
[2019-09-09] MEDS: ASPIRIN 325 MG TAB PO SCH (07:54)
[2019-09-09] MEDS: CLOPIDOGREL 75 MG TAB PO SCH (07:54)
[2019-09-09] MEDS: METOPROLOL TARTRATE 25 MG TAB PO SCH ×2 (07:54→20:43)
[2019-09-09] MEDS: HEPARIN SODIUM,PORCINE 5,000 UNIT/ML 1 ML VIAL SQ SCH ×3 (07:56→23:25)
--- NOTE | 2019-09-09 12:26 | P.PN ---
Subjective Progress Note Date: 09/09/19 This is a pleasant 84-year-old female with a documented history of hypertension, no diabetes, no hyperlipidemia, nonsmoker, who has been quite active. She does take lisinopril at home when needed, if her blood pressure is accelerated. She states that on Thursday of last week she had chest pressure and heaviness that radiated across her chest and into her bilateral axillae area, and both arms. The symptoms came and went throughout the day on Thursday and she had some mild symptoms on Thursday. According to the patient, she was watching TV and they were describing the symptoms of a heart attack. Initially she thought her symptoms may be related to neck or back discomfort, but after seeing the commercial she decided to go and see her primary care physician. He advised that she come to the emergency room for further evaluation and treatment. Her initial EKG on presentation here showed a normal sinus rhythm with nonspecific ST-T wave changes in the inferior leads. Blood pressure 134/60 with a heart rate in the 50s to 60s, 97% on room air. White blood cell count 4.6, hemoglobin 12.2, platelet count 225. D-dimer 0.6. Sodium 139, potassium 3.9, BUN 14, creatinine 0.8. Troponins 1.1, 0.9, 0.9. Cholesterol 195, LDL 138, HDL 42, triglycerides 74. At the time of my examination this morning in the emergency room patient is chest pain-free. 09/08/2019 Patient seen and examined this morning, denies any chest pain, no difficulty in breathing. She does state that she feels mildly tired today. Blood pressure 126/60 with a heart rate in the 70s, 98% on room air. Echocardiogram with Doppler study was performed which revealed an ejection fraction of 55-60%. Mild to moderate tricuspid regurg with moderate mitral regurgitation. I did have a lengthy discussion with the patient this morning explaining that we would like to continue to observe her for another 24 hours. If the patient has any symptoms of chest discomfort or exertional shortness of breath, her LAD will be stented during this admission, if the patient remains pain-free until tomorrow at our reevaluation, she may be able to be discharged home and come back electively for LAD stenting with Impella support. 09/09/2019 Patient was taken to the cardiac catheterization lab yesterday because of subsequent chest pain, she underwent stenting of the proximal and mid LAD by Dr. Simmons. Blood pressure 138/60, heart rate in the 60s, 96% on room air. White blood cell count 4.9, hemoglobin 11.8, platelet count 235. Sodium 138, potassium 3.8, BUN 13, creatinine 0.7. Patient was seen and examined this m orning, denied any chest pain, breathing is stable. Objective - Vital Signs Vital signs: Vital Signs Temp 97.8 F 09/09/19 08:00 Pulse 58 L 09/09/19 11:26 Resp 18 09/09/19 11:26 BP 138/65 09/09/19 11:26 Pulse Ox 96 09/09/19 11:26 Intake & Output 09/08/19 09/09/19 09/09/19 18:59 06:59 18:59 Intake Total 650 1500 240 Balance 650 1500 240 Weight 52.2 kg Intake: IV 170 Intake, IV Titration 900 Amount Sodium Chloride 0.9% 1, 900 000 ml @ 75 mls/hr IV . [id number] [facility] Rx#:[id number] Oral 480 600 240 Other: Voiding Method Toilet Toilet Toilet # Voids 3 - Exam PHYSICAL EXAMINATION: GENERAL: 84-year-old female in no acute distress at the time of my examination HEENT: Head is atraumatic, normocephalic. Pupils equal, round. Sclera anicteric. Conjunctiva are clear. Mucous membranes of the mouth are moist. Neck is supple. There is no elevated jugular venous pressure. No carotid b ruit is heard. HEART EXAMINATION: Heart S1, S2 normal. No murmur or gallop heard. CHEST EXAMINATION: Lungs are clear to auscultation and precussion. No chest wall tenderness is noted on palpation or with deep breathing. ABDOMEN: Soft, nontender. Bowel sounds are heard. No organomegaly noted. EXTREMITIES: 2+ peripheral pulses with no evidence of peripheral edema and no calf tenderness noted. Right groin soft, ecchymotic, no hematoma NEUROLOGIC patient is awake, alert and oriented 3 . . - Labs CBC & Chem 7: 09/09/19 05:34 09/09/19 05:34 Labs: Abnormal Lab Results - Last 24 Hours (Table) 02/21/20 02/21/20 Range/Units 05:34 05:34 RBC 3.67 L (3.80-5.40) m/uL Chloride 111 H (98-107) mmol/L Carbon Dioxide 19 L (22-30) mmol/L Assessment and Plan Plan: Assessment and plan #1 non-ST elevation CA, status post successful stenting of the first obtuse marginal branch of the circumflex and stenting of the proximal circumflex. Status post stenting of the proximal and mid LAD yesterday #2 hypertension #3 hyperlipidemia Plan We'll continue to observe the patient for another 24-48 hours. She's been encouraged to be up ambulating today. DNP note has been reviewed, I agree with a documented findings and plan of care. Patient was seen and examined.
--- NOTE | 2019-09-09 13:30 | P.PN ---
Subjective Progress Note Date: 09/08/19 Principal diagnosis: follow up for NSTEMI Patient seen and examined post left heart cath tolerated procedure well patient had 2 stents inserted she feels tired today, her blood pressure is wnl patient denies any chest pain or trouble breathing she denies any bleeding Objective - Vital Signs Vital signs: Vital Signs Temp 97.7 F 09/08/19 08:00 Pulse 66 09/08/19 12:00 Resp 18 09/08/19 12:00 BP 146/86 09/08/19 12:00 Pulse Ox 100 09/08/19 12:00 Intake & Output 09/07/19 09/08/19 09/08/19 18:59 06:59 18:59 Intake Total 112 1765 240 Balance 112 1765 240 Weight 52.163 kg 51.7 kg Intake: IV 112 Intake, IV Titration 1525 Amount Sodium Chloride 0.9% 1, 1525 000 ml @ 75 mls/hr IV . [id number] [facility] Rx#:[id number] Oral 240 240 Other: Voiding Method Toilet # Voids 2 3 # Bowel Movements 1 - Exam Constitutional: vital signs stable, Not in acute distress, pleasant, conve rsant Lungs: Clear to auscultation bilaterally, clear to percussion, normal respiratory effort Cardiovascular: Regular rate and rhythm, no murmurs, no gallops, no rubs, no peripheral edema Gastrointestinal: Soft, no tenderness to palpation, bowel sounds positive, Extremities: No digital cyanosis or clubbing, peripheral pulses palpable and equal , no calf muscle tenderness, bruising and ecchymosis over right groin site of left heart cath access. No audible bruit no swelling Psych: Alert, oriented to place, person and time, appropriate affect, intact judgment - Labs CBC & Chem 7: 09/09/19 05:34 09/09/19 05:34 Assessment and Plan Assessment: 84-year-old female no significant past medical history comes in due to recent episode of chest pain and elevated troponins suspected to have non-STEMI admitt ed for cardiac workup 09/07 Left heart cath showed 2 vessel disease Status post stenting left circumflex and first obtuse Plans for staged stenting of left anterior descending within 24-48 hours Echocardiogram showed left ventricle ejection fraction of 55-60% 09/08 monitored overnight for any episodes of chest pain or exertional dyspnea if patient to experience any pain, cardiology would consider stenting LAD in AM , otherwise , she would be discharged tomorrow and follow up with cardio annita garcia an elective date for LAD stenting which would require impilla support 09/09 Patient has recurrent chest pain last evening Cardiology was notified and was taken to the Accounts Payable Assistant she had stenting of the proximal and mid LAD Currently she is being monitored for another 24 hours before discharge Plan: Recurrent chest pain Two-vesselcoronary artery disease NSTEMI Atypical chest pain Left heart cath showed 2 vessel disease status post stenting of left circumflex and OM1, proximal and mid LAD Continue with dual antiplatelet therapy Continue with Lipitor Nitro when necessary Cardiology consult Cardiac monitoring heparin sc tid for DVT PPX Discharge planning home once cleared by cardiology
[2019-09-09] MEDS: NITROGLYCERIN-D5W PMX 50 MG in DEXTROSE/WATER 1 250ML.BAG IV SCH (14:25)
[2019-09-09] MEDS: ATORVASTATIN 80 MG TAB PO SCH (20:43)
[2019-09-09] MEDS: LATANOPROST 0.005% OPHTH DROPS 2.5 ML BTL BOTH EYES SCH (20:43)
[2019-09-10 06:35] VITALS: RESP 16
[2019-09-10 06:40] LABS: Basophils % (A) 1 %; Eosinophils # (A) 0.1 k/uL (0-0.7); Eosinophils % (A) 2 %; HCT 35.6 % (34.0-46.0); Lymphocytes # (A) 1.1 k/uL (1.0-4.8); Lymphocytes % (A) 26 %; MCH 32.3 pg (25.0-35.0); MCHC 33.8 g/dL (31.0-37.0); MCV 95.3 fL (80.0-100.0); Mean Platelet Volume 7.1; Monocytes # (A) 0.5 k/uL (0-1.0); Monocytes % (A) 11 %; Neutrophils # (A) 2.5 k/uL (1.3-7.7); Neutrophils % (A) 59 %; Platelet Count 235 k/uL (150-450); RBC 3.73 m/uL (3.80-5.40); RDW 11.7 % (11.5-15.5); WBC 4.2 k/uL (3.8-10.6)
[2019-09-10 06:59] LABS: Calcium 8.5 mg/dL (8.4-10.2); Potassium 3.8 mmol/L (3.5-5.1)
[2019-09-10] MEDS: CLOPIDOGREL 75 MG TAB PO SCH (08:43)
[2019-09-10] MEDS: METOPROLOL TARTRATE 25 MG TAB PO SCH (08:43)
[2019-09-10] MEDS: HEPARIN SODIUM,PORCINE 5,000 UNIT/ML 1 ML VIAL SQ SCH (08:43)
[2019-09-10] MEDS: ASPIRIN 325 MG TAB PO SCH (08:43)
[2019-09-10 10:45] VITALS: BP 113/71; PULSE 59; TEMP 97.9
--- NOTE | 2019-09-10 12:17 | P.PN ---
Subjective Progress Note Date: 09/10/19 This is a pleasant 84-year-old female with a documented history of hypertension, no diabetes, no hyperlipidemia, nonsmoker, who has been quite active. She does take lisinopril at home when needed, if her blood pressure is accelerated. She states that on Thursday of last week she had chest pressure and heaviness that radiated across her chest and into her bilateral axillae area, and both arms. The symptoms came and went throughout the day on Thursday and she had some mild symptoms on Thursday. According to the patient, she was watching TV and they were describing the symptoms of a heart attack. Initially she thought her symptoms may be related to neck or back discomfort, but after seeing the commercial she decided to go and see her primary care physician. He advised that she come to the emergency room for further evaluation and treatment. Her initial EKG on presentation here showed a normal sinus rhythm with nonspecific ST-T wave changes in the inferior leads. Blood pressure 134/60 with a heart rate in the 50s to 60s, 97% on room air. White blood cell count 4.6, hemoglobin 12.2, platelet count 225. D-dimer 0.6. Sodium 139, potassium 3.9, BUN 14, creatinine 0.8. Troponins 1.1, 0.9, 0.9. Cholesterol 195, LDL 138, HDL 42, triglycerides 74. At the time of my examination this morning in the emergency room patient is chest pain-free. 09/08/2019 Patient seen and examined this morning, denies any chest pain, no difficulty in breathing. She does state that she feels mildly tired today. Blood pressure 126/60 with a heart rate in the 70s, 98% on room air. Echocardiogram with Doppler study was performed which revealed an ejection fraction of 55-60%. Mild to moderate tricuspid regurg with moderate mitral regurgitation. I did have a lengthy discussion with the patient this morning explaining that we would like to continue to observe her for another 24 hours. If the patient has any symptoms of chest discomfort or exertional shortness of breath, her LAD will be stented during this admission, if the patient remains pain-free until tomorrow at our reevaluation, she may be able to be discharged home and come back electively for LAD stenting with Impella support. 09/09/2019 Patient was taken to the cardiac catheterization lab yesterday because of subsequent chest pain, she underwent stenting of the proximal and mid LAD by Dr. Simmons. Blood pressure 138/60, heart rate in the 60s, 96% on room air. White blood cell count 4.9, hemoglobin 11.8, platelet count 235. Sodium 138, potassium 3.8, BUN 13, creatinine 0.7. Patient was seen and examined this m orning, denied any chest pain, breathing is stable. 09/10/2019 Patient seen and examined this morning, doing well overall. Some mild shortness of breath when she was walking in the hallway at, but overall denies any shortness of breath or chest discomfort. Blood pressure 112/70 with a heart rate in the 60s, 96% on room air. White blood cell count 4.2, hemoglobin 12.0, platelet count 235. Sodium 137, potassium 3.8, BUN 15, creatinine 0.8. Objective - Vital Signs Vital signs: Vital Signs Temp 97.9 F 09/10/19 10:44 Pulse 59 L 09/10/19 10:44 Resp 16 09/10/19 10:44 BP 113/71 09/10/19 10:44 Pulse Ox 96 09/10/19 10:44 Intake & Output 09/09/19 09/10/19 09/10/19 18:59 06:59 18:59 Intake Total 720 240 Balance 720 240 Weight 52 kg Intake: Oral 720 240 Other: Voiding Method Toilet Toilet Toilet # Voids 4 1 1 # Bowel Movements 0 - Exam PHYSICAL EXAMINATION: GENERAL: 84-year-old female in no acute distress at the time of my examination HEENT: Head is atraumatic, normocephalic. Pupils equal, round. Sclera a nicteric. Conjunctiva are clear. Mucous membranes of the mouth are moist. Neck is supple. There is no elevated jugular venous pressure. No carotid bruit is heard. HEART EXAMINATION: Heart S1, S2 normal. No murmur or gallop heard. CHEST EXAMINATION: Lungs are clear to auscultation and precussion. No chest wall tenderness is noted on palpation or with deep breathing. ABDOMEN: Soft, nontender. Bowel sounds are heard. No organomegaly noted. EXTREMITIES: 2+ peripheral pulses with no evidence of peripheral edema and no calf tenderness noted. Right groin soft, ecchymotic, no hematoma NEUROLOGIC patient is awake, alert and oriented 3 . . - Labs CBC & Chem 7: 09/10/19 05:46 09/10/19 05:46 Labs: Abnormal Lab Results - Last 24 Hours (Table) 09/10/19 09/10/19 Range/Units 05:46 05:46 RBC 3.73 L (3.80-5.40) m/uL Chloride 108 H (98-107) mmol/L Assessment and Plan Plan: Assessment and plan #1 non-ST elevation CT, status post successful stenting of the first obtuse marginal branch of the circumflex and stenting of the proximal circumflex. Status post stenting of the proximal and mid LAD yesterday #2 hypertension #3 hyperlipidemia Plan Patient may be discharged home today from cardiology's perspective, we will make her a follow-up appointment in the office one week post discharge. I did educate the patient and the family regarding her medications, activity level. DNP note has been reviewed, I agree with a documented findings and plan of care. Patient was seen and examined.
--- NOTE | 2019-09-10 19:53 | P.DS ---
Providers Date of admission: 09/06/19 13:25 Expected date of discharge: 09/10/19 Attending physician: Enedelia Tee MD Consults: 09/06/19 13:25 Consult Physician Urgent Consulting Provider: Paul Rothman Consult Reason/Comments: nstemi Do you want consulting provider notified?: Yes 09/07/19 10:41 Consult Physician Routine Consulting Provider: [facility] Consult Reason/Comments: Post Interventional patient Do you want consulting provider notified?: Already Contacted 09/08/19 18:53 Consult Physician Routine Consulting Provider: [facility] Consult Reason/Comments: Post Interventional patient Do you want consulting provider notified?: Already Contacted Primary care physician: [facility] Course: Discharge Diagnosis: Non-ST segment myocardial infarction 2 vessel coronary artery disease Dyslipidemia Hypertension Hospital Course: Patient is an 84-year-old female with no significant past medical history who presented to the emergency department at the direction of her primary care practitioner secondary to abnormal blood work after experiencing chest pain. In the ER she underwent an extensive evaluation. Her initial vital signs were within normal limits. Initial laboratory analysis showed an elevated troponin. EKG showed some nonspecific ST segment depression in V2, 3, and 4. Results are made for admission for non-ST segment elevated myocardial infarction. She was started on heparin drip, Nitropaste, aspirin, and statin medications. She underwent an echocardiogram which showed a preserved ejection fraction of 55- 60%. Her troponin was were trended and were decreasing. She was seen and evaluated by cardiology who recommended cardiac catheterization. She underwent initial cardiac catheterization on 09/07/19 with stents to the left circumflex and OM1. They also on critical disease in the LAD and a staged procedure was planned. After that she continued to have chest pain especially with exertion. She was taken back to [facility] on [facility]19 and underwent 2 stents to the proximal and mid LAD. After that she remained chest pain-free. She was prescribed metoprolol and lisinopril. She was determined stable for discharge home. With a long discussion with her and her 2 daughters regarding the importance of medication compliance especially with her Plavix. Family will provide 24/ 7 care for the next 48 hours and will then be checking on her once daily as she lives alone. Patient will not drive for the next week. She will h ave home health care and establish a pillbox. She'll follow up with Dr. Hilliard on 09/15/[address] Cornelius in 2-3 days. Patient seen and examined at bedside. Chest pain-free. No nausea, vomiting, diaphoresis, shortness of breath, lightheadedness, dizziness, or palpitations. A long discussion was had with her 2 daughters at bedside and all questions answered best of my ability. Vital signs reviewed and stable. General: non toxic, no distress, appears at stated age Derm: warm, dry Head: atraumatic, normocephalic, symmetric Eyes: EOMI, no lid lag, anicteric sclera Mouth: no lip lesion, mucus membranes moist Cardiovascular: S1S2 reg, no murmur, positive posterior tibial pulse bilateral, Lungs: CTA bilateral, no rhonchi, no rales , no accessory muscle use Abdominal: soft, nontender to palpation, no guarding, no appreciable organomegaly Ext: no gross muscle atrophy, no edema, no contractures Neuro: CN II-XI grossly intact, no focal neuro deficits Psych: Alert, oriented, appropriate affect A total of 35 minutes of time were spent preparing this complex discharge summary . Patient Condition at Discharge: Stable Plan - Discharge Summary Discharge Rx Participant: No New Discharge Prescriptions: New Atorvastatin [Lipitor] 80 mg PO HS #30 tab Metoprolol Tartrate [Lopressor] 25 mg PO BID #60 tab Nitroglycerin Sl Tabs [Nitrostat] 0.4 mg SUBLINGUAL Q5M PRN #25 tab PRN Reason: Chest Pain Clopidogrel [Plavix] 75 mg PO DAILY #30 tab Continue Garlic 1 tab PO DAILY Fish Oil W/Vitamin D3(Unknown Dose) 1 cap PO DAILY Calcium Carbonate [Calcium] 600 mg PO HS Aspirin EC [Ecotrin Low Dose] 81 mg PO DAILY Latanoprost/Pf [Latanoprost 0.005% Eye Drop] 1 drop BOTH EYES HS Lisinopril [Prinivil] 10 mg PO HS #30 tab Discharge Medication List Aspirin EC [Ecotrin Low Dose] 81 mg PO DAILY 09/06/19 [History] Calcium Carbonate [Calcium] 600 mg PO HS 09/06/19 [History] Fish Oil W/Vitamin D3(Unknown Dose) 1 cap PO DAILY 09/06/19 [History] Garlic 1 tab PO DAILY 09/06/19 [History] Latanoprost/Pf [Latanoprost 0.005% Eye Drop] 1 drop BOTH EYES HS 09/07/19 [History] Atorvastatin [Lipitor] 80 mg PO HS #30 tab 09/10/19 [Rx] Clopidogrel [Plavix] 75 mg PO DAILY #30 tab 09/10/19 [Rx] Lisinopril [Prinivil] 10 mg PO HS #30 tab 09/10/19 [Rx] Metoprolol Tartrate [Lopressor] 25 mg PO BID #60 tab 09/10/19 [Rx] Nitroglycerin Sl Tabs [Nitrostat] 0.4 mg SUBLINGUAL Q5M PRN #25 tab 09/10/19 [Rx] Follow up Appointment(s)/Referral(s): [facility] [NON-STAFF] - (After discharge, you will follow-up with your hr representative. Once you have obtained a prescription for cardiac rehab and have completed a stress test, please call [phone] to set up an evaluation.) Yo Hilliard MD [STAFF PHYSICIAN] - 09/15/19 3:30 pm ([facility]/surgeon - please bring your photo ID, insurance cards, and a list of your current medications to appointment. Dr. Hilliard will discuss your next procedure at this follow up appointment. ) [facility], [NON-STAFF] - 1-2 Days Bryon Gao DO [Primary Care Provider] - 1-2 days (Patient requesting to make her own follow up appointment with her primary once she is able to look at her schedule.) Patient Instructions/Handouts: *[facility] - After Heart Catheterization - Mental Health Program Specialist Instructions, Heart Attack (DC), Heart Healthy Diet (DC) Activity/Diet/Wound Care/Special Instructions: CARDIAC CATH 1. Support your puncture site by applying firm, steady pressure whenever you cough, laugh, sneeze or bear down to have a bowel movement (2-day restriction). 2. Watch for any excessive bruising, active bleeding, a firm knot forming under your skin, extreme tenderness and signs of infection (redness, swelling, fever). 3. Shower daily, do not soak puncture in a tub bath, jacuzzi, pool, machado etc. for 1 week. This is to prevent risk of infection. 4. Drink plenty of fluids the day of and day after your procedure to flush contrast dye out of your kidneys. 5. Take all medications as directed. Never stop any new medication without your physicians OK. 6. No driving for 2 days after procedure. 7. 10- pound weight lifting restriction for 1 week. 8. Low sodium/low fat diet. 9. Activity limited until follow up appointment with your hr representative. In case of any problems, please call [facility] [place] @ [phone]. Activity: As tolerated Diet: Heart Health Discharge Disposition: HOME WITH HOME HEALTH SERVICES
== END 2019-09-10 13:39 | disposition home health service (06) | DRG 246 ==
LOC: EC 10:46 → 3SCARD 13:25
PROVIDERS: ADMIT Internal Medicine; ATTEND Internal Medicine
PROC: B2111ZZ Fluoroscopy of Multiple Coronary Arteries using Low Osmolar Contrast (ICD-10-PCS; principal; 2019-09-07 09:40)
PROC: 4A023N7 Measurement of Cardiac Sampling and Pressure, Left Heart, Percutaneous Approach (ICD-10-PCS; principal; 2019-09-07 09:40)
PROC: 027035Z Dilation of Coronary Artery, One Artery with Two Drug-eluting Intraluminal Devices, Percutaneous Approach (ICD-10-PCS; principal; 2019-09-07 09:40)
PROC: 027035Z Dilation of Coronary Artery, One Artery with Two Drug-eluting Intraluminal Devices, Percutaneous Approach (ICD-10-PCS; 2019-09-08 17:24)
PROC: 4A023N7 Measurement of Cardiac Sampling and Pressure, Left Heart, Percutaneous Approach (ICD-10-PCS; 2019-09-08 17:24)
PROC: B2111ZZ Fluoroscopy of Multiple Coronary Arteries using Low Osmolar Contrast (ICD-10-PCS; 2019-09-08 17:24)
DX: I21.4 Non-ST elevation (NSTEMI) myocardial infarction (principal); I10 Essential (primary) hypertension; I25.10 Atherosclerotic heart disease of native coronary artery without angina pectoris; I08.1 Rheumatic disorders of both mitral and tricuspid valves; E78.5 Hyperlipidemia, unspecified; Z79.82 Long term (current) use of aspirin; Z79.899 Other long term (current) drug therapy; Z90.49 Acquired absence of other specified parts of digestive tract; Z88.8 Allergy status to other drugs, medicaments and biological substances
CPT/HCPCS: 36415; 71046; 80048; 80053; 80061; 82565; 84484; 85025; 85049; 85379; 85610; 85730; 93005; 93306; 93458; 96365; 96366; 96376; 99291

== ENCOUNTER 2019-09-14 00:16 | Emergency (ER) | payer MEDICARE ==
[2019-09-14 00:22] VITALS: TEMP 98.2
[2019-09-14] MEDS ORDERED: ASPIRIN 81 MG PO STA (00:35)
[2019-09-14 00:45] LABS: Basophils % (A) 0 %; Eosinophils # (A) 0.2 k/uL (0-0.7); Eosinophils % (A) 3 %; HCT 34.7 % (34.0-46.0); HGB 11.7 gm/dL (11.4-16.0); Lymphocytes # (A) 1.3 k/uL (1.0-4.8); Lymphocytes % (A) 24 %; MCH 31.7 pg (25.0-35.0); MCHC 33.6 g/dL (31.0-37.0); MCV 94.4 fL (80.0-100.0); Mean Platelet Volume 7.2; Monocytes # (A) 0.3 k/uL (0-1.0); Monocytes % (A) 6 %; Neutrophils # (A) 3.3 k/uL (1.3-7.7); Neutrophils % (A) 64 %; Platelet Count 300 k/uL (150-450); RBC 3.67 m/uL (3.80-5.40); RDW 11.6 % (11.5-15.5); WBC 5.2 k/uL (3.8-10.6)
--- NOTE | 2019-09-14 00:45 | ED ---
Chest Pain HPI - General Chief Complaint: Chest Pain Stated Complaint: Chest pain Time Seen by Provider: 09/14/19 00:30 Source: patient, EMS Mode of arrival: EMS Limitations: no limitations - History of Present Illness Initial Comments: This patient is an 84-year-old woman who presents to be evaluate for pain at the base of her neck. The patient states that she had been listening to basketball game while sitting up. When the game ended she went to lie down and noted that she felt tightness at the back of the base of her neck. Given that she was r ecently in the hospital diagnosed with NSTEMI, and was told to return to the hospital she had any symptoms affecting her torso or neck, she tried taking nitroglycerin with no relief. She took a total of 3 tablets and then called EMS. She states that things seemed to have started to spontaneously resolve. She did not have any associated anginal symptoms. MD Complaint: other Onset/Timin -: hour(s) Onset: during rest Pain Location: other (Neck) Pain Radiation: none Improves With: nothing Worsens With: nothing Treatments Prior to Arrival: nitroglycerin - Related Data Home Medications Medication Instructions Recorded Confirmed Aspirin EC [Ecotrin Low Dose] 81 mg PO DAILY 09/06/19 09/06/19 Calcium Carbonate [Calcium] 600 mg PO HS 09/06/19 09/06/19 Fish Oil W/Vitamin D3(Unknown Dose) 1 cap PO DAILY 09/06/19 09/06/19 Garlic 1 tab PO DAILY 09/06/19 09/06/19 Latanoprost/Pf [Latanoprost 0.005% 1 drop BOTH EYES HS 09/07/19 09/07/19 Eye Drop] Previous Rx's Medication Instructions Recorded Atorvastatin [Lipitor] 80 mg PO HS #30 tab 09/10/19 Clopidogrel [Plavix] 75 mg PO DAILY #30 tab 09/10/19 Lisinopril [Prinivil] 10 mg PO HS #30 tab 09/10/19 Metoprolol Tartrate [Lopressor] 25 mg PO BID #60 tab 09/10/19 Nitroglycerin Sl Tabs [Nitrostat] 0.4 mg SUBLINGUAL Q5M PRN #25 tab 09/10/19 Allergies Allergy/AdvReac Type Severity Reaction Status Date / Time eye drops Allergy Swelling Uncoded 09/06/19 16:58 Review of Systems ROS Statement: Those systems with pertinent positive or pertinent negative responses have been documented in the HPI. ROS Other: All systems not noted in ROS Statement are negative. Constitutional: Denies: fever, chills Respiratory: Denies: cough, dyspnea Cardiovascular: Reports: as per HPI. Denies: chest pain, palpitations, orthopnea, edema, syncope Gastrointestinal: Denies: abdominal pain, nausea, vomiting, diarrhea, constipation Genitourinary: Denies: dysuria, hematuria Musculoskeletal: Denies: back pain Skin: Denies: rash Neurological: Denies: headache, weakness, numbness EKG Findings - EKG Results: EKG: interpreted by ERMD, sinus rhythm, normal axis, normal QRS EKG shows: bradycardia (Rate 54 bpm) - Blocks, [place], Hypertrophy, ST Abn: Repolarization changes or abnormalities: nonspecific abnormality, ST segment, and/or T wave Past Medical History Past Medical History: No Reported History, Eye Disorder, Hypertension Additional Past Medical History / Comment(s): Glaucoma, DJD History of Any Multi-Drug Resistant Organisms: None Reported Past Surgical History: Cholecystectomy Additional Past Surgical History / Comment(s): stent placed 2020 Past Psychological History: No Psychological Hx Reported Smoking Status: Never smoker Past Alcohol Use History: None Reported Past Drug Use History: None Reported - Past Family History Family Family Medical History: No Reported History General Exam Limitations: no limitations General appearance: alert, in no apparent distress Head exam: Present: atraumatic, normocephalic Eye exam: Present: normal appearance. Absent: scleral icterus, conjunctival injection ENT exam: Present: normal oropharynx Neck exam: Present: normal inspection, full ROM. Absent: tenderness, meningismus Respiratory exam: Present: normal lung sounds bilaterally. Absent: respiratory distress, wheezes, rales, rhonchi, stridor Cardiovascular Exam: Present: regular rate, normal rhythm, normal heart sounds. Absent: systolic murmur, diastolic murmur, rubs, gallop GI/Abdominal exam: Present: soft. Absent: distended, tenderness, guarding, rebound Extremities exam: Present: normal inspection, normal capillary refill. Absent: pedal edema, calf tenderness Back exam: Present: normal inspection. Absent: CVA tenderness (R), CVA tenderness (L), vertebral tenderness Neurological exam: Present: alert Skin exam: Present: warm, dry, intact, normal color. Absent: rash Course Vital Signs 09/14/19 09/14/19 09/14/19 00:18 00:30 01:00 Temperature 98.2 F Pulse Rate 60 53 L 52 L Respiratory 18 18 18 Rate Blood Pressure 125/90 107/55 99/50 O2 Sat by Pulse 99 98 100 Oximetry 09/14/19 09/14/19 09/14/19 01:19 01:30 02:00 Temperature Pulse Rate 55 L 52 L 56 L Respiratory 18 18 19 Rate Blood Pressure 100/55 100/53 96/52 O2 Sat by Pulse 98 97 97 Oximetry 09/14/19 09/14/19 02:30 03:00 Temperature Pulse Rate 52 L 53 L Respiratory 18 17 Rate Blood Pressure 101/57 96/50 O2 Sat by Pulse 98 97 Oximetry Disposition Clinical Impression: Neck pain Disposition: HOME SELF-CARE Condition: Good Instructions (If sedation given, give patient instructions): Neck Pain (ED) Is patient prescribed a controlled substance at d/c from ED?: No Referrals: Bryon Gao DO [Primary Care Provider] - 1-2 days
[2019-09-14 00:56] LABS: Albumin 3.6 g/dL (3.5-5.0); Calcium 8.8 mg/dL (8.4-10.2); Magnesium 2.1 mg/dL (1.6-2.3); Potassium 4.1 mmol/L (3.5-5.1); Total Bilirubin 0.5 mg/dL (0.2-1.3); Total Protein 6.2 g/dL (6.3-8.2)
--- NOTE | 2019-09-14 01:05 | XR ---
EXAMINATION TYPE: XR chest 2V DATE OF EXAM: 09/14/2019 COMPARISON: 09/06/2019 HISTORY: Chest pain TECHNIQUE: FINDINGS: Heart and mediastinum are normal for age. Lungs are clear. Diaphragm is normal. There are n o hilar masses. Bony thorax is intact. There are chest leads. IMPRESSION: Chest is normal for age. No change.
[2019-09-14 01:06] LABS: INR 0.9 (<1.2); Prothrombin Time 9.7 sec (9.0-12.0)
[2019-09-14 01:07] LABS: Partial Thromboplastin Time 21.3 sec (22.0-30.0)
[2019-09-14] MEDS ORDERED: MORPHINE SULFATE 4 MG/ML SYRINGE IV STA (01:22)
[2019-09-14 03:03] VITALS: RESP 17
[2019-09-14 04:09] VITALS: BP 96/53; PULSE 52
== END 2019-09-14 04:23 | disposition home or self-care (01) ==
LOC: EC 00:16
DX: M54.2 Cervicalgia (principal); I10 Essential (primary) hypertension; I25.2 Old myocardial infarction; H40.9 Unspecified glaucoma; Z79.82 Long term (current) use of aspirin; Z88.8 Allergy status to other drugs, medicaments and biological substances; Z95.5 Presence of coronary angioplasty implant and graft
CPT/HCPCS: 36415; 71046; 80053; 83735; 84484; 85025; 85610; 85730; 93005; 99285

== ENCOUNTER 2020-04-19 07:01 | Observation (INO) | payer MEDICARE ==
[2020-04-19] MEDS ORDERED: NITROGLYCERIN OINT 1 INCH/GM PACKET TOPICAL STA (07:26)
--- NOTE | 2020-04-19 07:29 | ED ---
General Adult HPI - General Chief complaint: Chest Pain Stated complaint: Chest Pain Time Seen by Provider: 04/19/20 07:05 Source: patient, EMS, RN notes reviewed, old records reviewed Mode of arrival: EMS Limitations: no limitations - History of Present Illness Initial comments: This is a 84-year-old female who presents emergency Department with a past medical history significant for an IA. Patient comes in today stating she woke up with some posterior neck pain on the left. Patient states shortly after that she started having some chest pressure across her chest. Patient states she took 4 aspirin at that time and called EMS. Patient denies any difficulty breathing or diaphoretic episodes. Patient denies any nausea vomiting. Patient states when she got an ambulance they gave her nitroglycerin took her pain away completely. Patient denies any recent fever chills or cough. Patient denies any abdominal pain patient denies any nausea vomiting diarrhea. - Related Data Home Medications Medication Instructions Recorded Confirmed Aspirin EC [Ecotrin Low Dose] 81 mg PO DAILY 09/06/19 04/19/20 Calcium Carbonate [Calcium] 600 mg PO HS 09/06/19 04/19/20 Fish Oil W/Vitamin D3(Unknown Dose) 1 cap PO DAILY 09/06/19 04/19/20 Garlic 1 tab PO DAILY 09/06/19 04/19/20 Latanoprost/Pf [Latanoprost 0.005% 1 drop BOTH EYES HS 09/07/19 04/19/20 Eye Drop] Halobetasol Propionate [Ultravate] 1 applic TOPICAL DAILY PRN 04/19/20 04/19/20 Lisinopril [Prinivil] 10 mg PO HS 04/19/20 04/19/20 Previous Rx's Medication Instructions Recorded Atorvastatin [Lipitor] 80 mg PO HS #30 tab 09/10/19 Clopidogrel [Plavix] 75 mg PO DAILY #30 tab 09/10/19 Nitroglycerin Sl Tabs [Nitrostat] 0.4 mg SUBLINGUAL Q5M PRN #25 tab 09/10/19 Allergies Allergy/AdvReac Type Severity Reaction Status Date / Time eye drops Allergy Swelling Uncoded 04/19/20 08:44 Review of Systems ROS Statement: Those systems with pertinent positive or pertinent negative responses have been documented in the HPI. ROS Other: All systems not noted in ROS Statement are negative. Past Medical History Past Medical History: No Reported History, Eye Disorder, Hypertension Additional Past Medical History / Comment(s): Glaucoma, DJD History of Any Multi-Drug Resistant Organisms: None Reported Past Surgical History: Cholecystectomy Additional Past Surgical History / Comment(s): stent placed 2020 Past Psychological History: No Psychological Hx Reported Smoking Status: Never smoker Past Alcohol Use History: None Reported Past Drug Use History: None Reported - Past Family History Family Family Medical History: No Reported History General Exam - General Exam Comments Initial Comments: GENERAL: Patient is well-developed and well-nourished. Patient is nontoxic and well- hydrated and is in mild distress. ENT: Neck is soft and supple. No significant lymphadenopathy is noted. Oropharynx is clear. Moist mucous membranes. Neck has full range of motion without eliciting any pain. EYES: The sclera were anicteric and conjunctiva were pink and moist. Extraocular movements were intact and pupils were equal round and reactive to light. Eyelids were unremarkable. PULMONARY: Unlabored respirations. Good breath sounds bilaterally. No audible rales rhonchi or wheezing was noted. CARDIOVASCULAR: There is a regular rate and rhythm without any murmurs gallops or rubs. ABDOMEN: Soft and nontender with normal bowel sounds. SKIN: Skin is clear with no lesions or rashes and otherwise unremarkable. NEUROLOGIC: Patient is alert and oriented x3. Cranial nerves II through XII are grossly intact. Motor and sensory are also intact. Normal speech, volume and content. Symmetrical smile. MUSCULOSKELETAL: Normal extremities with adequate strength and full range of motion. LYMPHATICS: No significant lymphadenopathy is noted PSYCHIATRIC: Normal psychiatric evaluation. Limitations: no limitations Course Vital Signs 04/19/20 04/19/20 04/19/20 07:07 08:12 09:12 Temperature 97.7 F Pulse Rate 52 L 70 72 Respiratory 16 18 18 Rate Blood Pressure 129/90 128/62 109/85 O2 Sat by Pulse 98 97 97 Oximetry Medical Decision Making - Medical Decision Making EKG shows sinus bradycardia 54 bpm LA interval is 138 QRS is 94 Q-T intervals 4:30 QTC is 407. Patient's EKG shows no ST segment elevation or depression. Patient was comfortable throughout the ED stay. Chest x-ray showed no acute normalities. Patient was started on heparin because of the continued chest pain. I spoke with [facility] hospitalist and they agreed to admit the patient admitted the patient wrote admitting orders. I continued heparin and aspirin and Nitropaste floor. I consult cardiology. - Lab Data Result diagrams: 04/19/20 07:32 04/19/20 08:10 Lab Results 04/19/20 04/19/20 04/19/20 Range/Units 07:32 08:10 08:10 WBC 5.3 (3.8-10.6) k/uL RBC 4.01 (3.80-5.40) m/uL Hgb 13.0 (11.4-16.0) gm/dL Hct 38.8 (34.0-46.0) % MCV 96.7 (80.0-100.0) fL MCH 32.4 (25.0-35.0) pg MCHC 33.5 (31.0-37.0) g/dL RDW 11.9 (11.5-15.5) % Plt Count 162 (150-450) k/uL Neutrophils % 62 % Lymphocytes % 27 % Monocytes % 7 % Eosinophils % 2 % Basophils % 1 % Neutrophils # 3.3 (1.3-7.7) k/uL Lymphocytes # 1.4 (1.0-4.8) k/uL Monocytes # 0.4 (0-1.0) k/uL Eosinophils # 0.1 (0-0.7) k/uL Basophils # 0.0 (0-0.2) k/uL PT (9.0-12.0) sec INR (<1.2) APTT (22.0-30.0) sec Sodium 142 (137-145) mmol/L Potassium 3.7 (3.5-5.1) mmol/L Chloride 108 H (98-107) mmol/L Carbon Dioxide 26 (22-30) mmol/L Anion Gap 8 mmol/L BUN 12 (7-17) mg/dL Creatinine 0.75 (0.52-1.04) mg/dL Est GFR (CKD-EPI)AfAm 85 (>60 ml/min/1.73 sqM) Est GFR (CKD-EPI)NonAf 74 (>60 ml/min/1.73 sqM) Glucose 102 H (74-99) mg/dL Calcium 9.2 (8.4-10.2) mg/dL Magnesium 1.9 (1.6-2.3) mg/dL Total Bilirubin 1.1 (0.2-1.3) mg/dL AST 31 (14-36) U/L ALT 24 (4-34) U/L Alkaline Phosphatase 65 (38-126) U/L Troponin I <0.012 (0.000-0.034) ng/mL Total Protein 6.6 (6.3-8.2) g/dL Albumin 4.0 (3.5-5.0) g/dL 04/19/20 Range/Units 08:10 WBC (3.8-10.6) k/uL RBC (3.80-5.40) m/uL Hgb (11.4-16.0) gm/dL Hct (34.0-46.0) % MCV (80.0-100.0) fL MCH (25.0-35.0) pg MCHC (31.0-37.0) g/dL RDW (11.5-15.5) % Plt Count (150-450) k/uL Neutrophils % % Lymphocytes % % Monocytes % % Eosinophils % % Basophils % % Neutrophils # (1.3-7.7) k/uL Lymphocytes # (1.0-4.8) k/uL Monocytes # (0-1.0) k/uL Eosinophils # (0-0.7) k/uL Basophils # (0-0.2) k/uL PT 10.4 (9.0-12.0) sec INR 1.0 (<1.2) APTT 24.1 (22.0-30.0) sec Sodium (137-145) mmol/L Potassium (3.5-5.1) mmol/L Chloride (98-107) mmol/L Carbon Dioxide (22-30) mmol/L Anion Gap mmol/L BUN (7-17) mg/dL Creatinine (0.52-1.04) mg/dL Est GFR (CKD-EPI)AfAm (>60 ml/min/1.73 sqM) Est GFR (CKD-EPI)NonAf (>60 ml/min/1.73 sqM) Glucose (74-99) mg/dL Calcium (8.4-10.2) mg/dL Magnesium (1.6-2.3) mg/dL Total Bilirubin (0.2-1.3) mg/dL AST (14-36) U/L ALT (4-34) U/L Alkaline Phosphatase (38-126) U/L Troponin I (0.000-0.034) ng/mL Total Protein (6.3-8.2) g/dL Albumin (3.5-5.0) g/dL Critical Care Time Critical Care Time: Yes Total Critical Care Time: 35 Disposition Clinical Impression: Unstable angina pectoris Disposition: ADMITTED IP TO THIS HOSP Referrals: Bryon Gao DO [Primary Care Provider] - 1-2 days Time of Disposition: 09:56
[2020-04-19 07:52] LABS: Basophils % (A) 1 %; Eosinophils # (A) 0.1 k/uL (0-0.7); Eosinophils % (A) 2 %; HCT 38.8 % (34.0-46.0); Lymphocytes # (A) 1.4 k/uL (1.0-4.8); Lymphocytes % (A) 27 %; MCH 32.4 pg (25.0-35.0); MCHC 33.5 g/dL (31.0-37.0); MCV 96.7 fL (80.0-100.0); Mean Platelet Volume 7.9; Monocytes # (A) 0.4 k/uL (0-1.0); Monocytes % (A) 7 %; Neutrophils # (A) 3.3 k/uL (1.3-7.7); Neutrophils % (A) 62 %; Platelet Count 162 k/uL (150-450); RBC 4.01 m/uL (3.80-5.40); RDW 11.9 % (11.5-15.5); WBC 5.3 k/uL (3.8-10.6)
--- NOTE | 2020-04-19 08:07 | XR ---
EXAMINATION TYPE: XR chest 2V DATE OF EXAM: 04/19/2020 COMPARISON: 09/14/2019 HISTORY: Shortness of breath TECHNIQUE: Frontal and lateral views of the chest are obtained. FINDINGS: Scattered senescent parenchymal changes noted. Hyperinflation compatible with COPD. No evidence for infiltrate. No evidence for atelectasis. Heart size is stable. Mediastinal structures are stable and grossly unremarkable. No evidence for hilar prominence. Degenerative changes dorsal spine. IMPRESSION: 1. No evidence for acute pulmonary disease.
[2020-04-19 08:29] LABS: Calcium 9.2 mg/dL (8.4-10.2); Magnesium 1.9 mg/dL (1.6-2.3); Partial Thromboplastin Time 24.1 sec (22.0-30.0); Potassium 3.7 mmol/L (3.5-5.1); Prothrombin Time 10.4 sec (9.0-12.0); Total Bilirubin 1.1 mg/dL (0.2-1.3); Total Protein 6.6 g/dL (6.3-8.2)
[2020-04-19] MEDS ORDERED: NITROGLYCERIN SL TABS 0.4 MG TAB SUBLINGUAL PRN (09:56)
[2020-04-19] MEDS ORDERED: HEPARIN SODIUM,PORCINE 5,000 UNIT/ML 1 ML VIAL IV ONE (09:56)
[2020-04-19] MEDS ORDERED: HEPARIN SOD,PORK IN 0.45% NACL 25,000 UNIT in 0.45% NACL 1 250ML.BAG IV SCH (10:00)
[2020-04-19] MEDS: NITROGLYCERIN OINT 1 INCH/GM PACKET TOPICAL SCH ×2 (12:29→21:46)
[2020-04-19] MEDS: CLOPIDOGREL 75 MG TAB PO SCH (12:29)
--- NOTE | 2020-04-19 17:43 | ECHOF ---
Referral Reason:cp MEASUREMENTS -------- HEIGHT: 149.9 cm WEIGHT: 52.6 kg BP: 109/85 RVIDd: 3.5 cm (< 3.3) IVSd: 1.1 cm (0.6 - 1.1) LVIDd: 4.1 cm (3.9 - 5.3) LVPWd: 1.1 cm (0.6 - 1.1) IVSs: 1.4 cm LVIDs: 2.4 cm LVPWs: 1.6 cm LAESV Index (A-L): 22.31 ml/m Ao Diam: 2.7 cm (2.0 - 3.7) AV Cusp: 1.3 cm (1.5 - 2.6) MV EXCURSION: 20.022 mm (> 18.000) MV EF SLOPE: 81 mm/s (70 - 150) EPSS: 0.7 cm MV E Arvin: 0.81 m/s MV DecT: 253 ms MV A Arvin: 0.90 m/s MV E/A Ratio: 0.90 RAP: 5.00 mmHg RVSP: 36.46 mmHg FINDINGS -------- This was a technically adequate study. The left ventricular size is normal. There is mild concentric left ventricular hypertrophy. Overa ll left ventricular systolic function is normal with, an EF between 55 - 60 %. The diastolic fillin g pattern is normal for the age of the patient {E/E'}. The right ventricle is mildly enlarged. Normal LA size by volume 22+/-6 ml/m2. The right atrial size is normal. Interatrial and interventricular septum intact. There is no evidence of aortic regurgitation. There is no evidence of aortic stenosis. Mild mitral regurgitation is present. Mild tricuspid regurgitation present. There is mild pulmonary hypertension. The right ventricular systolic pressure, as measured by Doppler, is 36.46mmHg. There is no pulmonic regurgitation present. The aortic root size is normal. IVC Not well visulized. There is no pericardial effusion. CONCLUSIONS -------- 1. The left ventricular size is normal. 2. There is mild concentric left ventricular hypertrophy. 3. Overall left ventricular systolic function is normal with, an EF between 55 - 60 %. 4. The diastolic filling pattern is normal for the age of the patient {E/E'} 5. The right ventricle is mildly enlarged. 6. Mild mitral regurgitation is present. 7. Mild tricuspid regurgitation present. 8. There is mild pulmonary hypertension. MICROFILMER: Daisha Goyal RDCS
[2020-04-19] MEDS ORDERED: ATORVASTATIN 80 MG TAB PO SCH (21:00)
[2020-04-19] MEDS ORDERED: lisinopriL 10 MG TAB PO SCH (21:00)
[2020-04-20] MEDS: NITROGLYCERIN OINT 1 INCH/GM PACKET TOPICAL SCH ×2 (00:42→05:42)
[2020-04-20 06:55] LABS: Cholesterol 127 mg/dL (<200); HDL Cholesterol 40 mg/dL (40-60); LDL Cholesterol,Calculated 74 mg/dL (0-99); Triglycerides 65 mg/dL (<150)
--- NOTE | 2020-04-20 07:44 | P.CRDCN ---
History of Present Illness History of present illness: HISTORY OF PRESENTING ILLNESS This is a pleasant 84-year-old female past medical history significant for coronary artery disease in the setting of a non-ST elevated myocardial infa rction August 2019, hypertension, dyslipidemia, mitral regurgitation and chronic back pain. She follows in the office with Dr. Hilliard. We have been asked to see in consultation for chest pain. She states for the previous few months she has been experiencing weakness and fatigue. She saw her PCP and they decided to stop her lopressor because her heart rates were running on the low side. Her last dose was last week. Since stopping that she has noticed an increase in her energy level and is less weak. However, she has noticed her blood pressures have been running on the high side in the 150-160 systolic range. She also has been feeling an increase in her chronic back and neck pain. Typically the pain is relieved by hot packs. It is worsened by movement of her neck or arms. This morning she noticed a pressure that wrapped around her upper body in her chest. This is the first time she has felt this pain. She had no radiation down the arms or into the neck/jaw. She felt very mildly nauseated, but no vomiting. Denies shortness of breath, dizziness or palpitations. Currently chest pain free . Blood pressures have been in the 120's. She takes only lisinopril at HS. DIAGNOSTICS EKG reveals sinus bradycardia heart rate of 54 with nonspecific mild upsloping lateral ST depression. Chest xray negative for an acute cardiopulmonary process. Laboratory reviewed, CBC unremarkable, sodium 142, potassium 3.7, creatinine 0.75, cardiac enzymes negative 1. Current cardiac medications include lisinopril 10 mg daily, Plavix 75 mg daily, atorvastatin 80 mg daily and aspirin 81 mg daily. Most recent echocardiogram obtained August 2019 revealed preserved LV systolic function with ejection fraction 55-60% with moderate mitral regurgitation and mild to moderate tricuspid regurgitation. REVIEW OF SYSTEMS At the time of my exam: CONSTITUTIONAL: Denies fever or chills. CARDIOVASCULAR: Denies chest pain, shortness of breath, orthopnea, PND or palpitations. RESPIRATORY: Denies cough. GASTROINTESTINAL: Denies abdominal pain, diarrhea, constipation, nausea or vomiting. MUSCULOSKELETAL: Denies myalgias. NEUROLOGIC: Denies numbness, tingling or weakness. ENDOCRINE: Denies fatigue, weight change, polydipsia or polyurina. GENITOURINARY: Denies burning, hematuria or urgency with micturation. HEMATOLOGIC: Denies history of anemia or bleeding. PHYSICAL EXAMINATION Blood pressure 109/85 heart rate 72 afebrile and maintaining oxygen saturation on room air. CONSTITUTIONAL: No apparent distress. HEENT: Head is normocephalic. Pupils are equal, round. Sclerae anicteric. Mucous membranes of the mouth are moist. No JVD. No carotid bruit. CHEST EXAMINATION: Lungs are clear to auscultation. No chest wall tenderness is noted on palpation or with deep breathing. HEART EXAMINATION: Regular rate and rhythm. S1, S2 heard. Systolic ejection murmur at the left sternal border, no gallops or rub. ABDOMEN: Soft, nontender. Positive bowel sounds. EXTREMITIES: 2+ peripheral pulses, no lower extremity edema and no calf tenderness. NEUROLOGIC EXAMINATION: Patient is awake, alert and oriented x3. ASSESSMENT Chest pain, atypical for angina. Coronary artery disease status post recent PCI in the setting of myocardial infarction August 2019 maintained on dual antiplatelet therapy Hypertension Dyslipidemia Chronic neck and back pain, musculoskeletal. PLAN Continue to obtain serial cardiac enzymes to rule out an acute event. Obtain 2-D echocardiogram and Doppler study to assess cardiac structure and function. Continue aspirin, plavix, lisinopril and atorvastatin as previously ordered. Continue to monitor blood pressure closely and consider possibly increasing lisinopril to BID dosing if warranted. Further recommendations to follow based on clinical course. Thank you kindly for this consultation. Nurse Practitioner note has been reviewed, I agree with a documented findings and plan of care. Patient was seen and examined. Past Medical History Past Medical History: No Reported History, Eye Disorder, Hypertension Additional Past Medical History / Comment(s): Glaucoma, DJD History of Any Multi-Drug Resistant Organisms: None Reported Past Surgical History: Cholecystectomy Additional Past Surgical History / Comment(s): stent placed 2019 Past Psychological History: No Psychological Hx Reported Smoking Status: Never smoker Past Alcohol Use History: None Reported Past Drug Use History: None Reported - Past Family History Family Family Medical History: No Reported History Medications and Allergies Home Medications Medication Instructions Recorded Confirmed Type Aspirin EC [Ecotrin Low Dose] 81 mg PO DAILY 09/06/19 04/19/20 History Calcium Carbonate [Calcium] 600 mg PO HS 09/06/19 04/19/20 History Fish Oil W/Vitamin D3(Unknown Dose) 1 cap PO DAILY 09/06/19 04/19/20 History Garlic 1 tab PO DAILY 09/06/19 04/19/20 History Latanoprost/Pf [Latanoprost 0.005% 1 drop BOTH EYES HS 09/07/19 04/19/20 History Eye Drop] Atorvastatin [Lipitor] 80 mg PO HS #30 tab 09/10/19 04/19/20 Rx Clopidogrel [Plavix] 75 mg PO DAILY #30 tab 09/10/19 04/19/20 Rx Nitroglycerin Sl Tabs [Nitrostat] 0.4 mg SUBLINGUAL Q5M PRN #25 tab 09/10/19 04/19/20 Rx Halobetasol Propionate [Ultravate] 1 applic TOPICAL DAILY PRN 04/19/20 04/19/20 History Lisinopril [Prinivil] 10 mg PO HS 04/19/20 04/19/20 History Allergies Allergy/AdvReac Type Severity Reaction Status Date / Time eye drops Allergy Swelling Uncoded 04/19/20 08:44 Physical Exam Vitals: Vital Signs Temp Pulse Resp BP Pulse Ox 04/19/20 11:00 55 L 18 109/64 97 04/19/20 10:00 66 18 97 04/19/20 09:12 72 18 109/85 97 04/19/20 08:12 70 18 128/62 97 04/19/20 07:07 97.7 F 52 L 16 129/90 98 Intake and Output 04/18/20 04/19/20 04/19/20 22:59 06:59 14:59 Other: Weight 52.617 kg Results 04/19/20 07:32 04/19/20 08:10 Cardiac Enzymes 04/19/20 04/19/20 Range/Units 08:10 08:10 AST 31 (14-36) U/L Troponin I <0.012 (0.000-0.034) ng/mL Coagulation 04/19/20 Range/Units 08:10 PT 10.4 (9.0-12.0) sec APTT 24.1 (22.0-30.0) sec CBC 04/19/20 Range/Units 07:32 WBC 5.3 (3.8-10.6) k/uL RBC 4.01 (3.80-5.40) m/uL Hgb 13.0 (11.4-16.0) gm/dL Hct 38.8 (34.0-46.0) % Plt Count 162 (150-450) k/uL Comprehensive Metabolic Panel 04/19/20 Range/Units 08:10 Sodium 142 (137-145) mmol/L Potassium 3.7 (3.5-5.1) mmol/L Chloride 108 H (98-107) mmol/L Carbon Dioxide 26 (22-30) mmol/L BUN 12 (7-17) mg/dL Creatinine 0.75 (0.52-1.04) mg/dL Glucose 102 H (74-99) mg/dL Calcium 9.2 (8.4-10.2) mg/dL AST 31 (14-36) U/L ALT 24 (4-34) U/L Alkaline Phosphatase 65 (38-126) U/L Total Protein 6.6 (6.3-8.2) g/dL Albumin 4.0 (3.5-5.0) g/dL Current Medications Generic Name Dose Route Start Last Admin Trade Name Freq PRN Reason Stop Dose Admin Aspirin 81 mg 04/20/20 09:00 Aspirin 81 Mg PO DAILY [facility] Atorvastatin Calcium 80 mg 04/19/20 21:00 Atorvastatin 80 Mg Tab PO HS [facility] Clopidogrel Bisulfate 75 mg 04/19/20 11:15 Clopidogrel 75 Mg Tab PO DAILY [facility] Heparin Sodium/Sodium Chloride 250 mls @ 6.314 mls/hr 04/19/20 10:00 04/19/20 11:12 25,000 unit/ Sodium Chloride IV 12 units/kg/hr .Q24H DANILO 6.314 mls/hr Administration Protocol 12 UNITS/KG/HR Lisinopril 10 mg 04/19/20 21:00 Lisinopril 10 Mg Tab PO HS [facility] Nitroglycerin 0.4 mg 04/19/20 09:56 Nitroglycerin Sl Tabs 0.4 Mg Tab SUBLINGUAL Q5M PRN Chest Pain Nitroglycerin 1 inch 04/19/20 12:00 Nitroglycerin Oint 1 Inch/Gm Packet TOPICAL Q6HR DANILO Intake and Output 04/18/20 04/19/20 04/19/20 22:59 06:59 14:59 Other: Weight 52.617 kg Patient Weight 04/20/20 06:59 Weight 52.617 kg 04/19/20 07:32 04/19/20 08:10
[2020-04-20 08:29] VITALS: PULSE 74; RESP 20; TEMP 97.8
[2020-04-20] MEDS ORDERED: ASPIRIN 81 MG PO SCH (09:00)
[2020-04-20] MEDS ORDERED: ASPIRIN 325 MG TAB PO SCH (09:00)
[2020-04-20] MEDS: CLOPIDOGREL 75 MG TAB PO SCH (09:40)
--- NOTE | 2020-04-20 10:33 | P.PN ---
Subjective Progress Note Date: 04/20/20 CHIEF COMPLAINT: Chest pain HISTORY OF PRESENT ILLNESS: Patient examined this morning at the bedside. She denies chest pain or pressure. Denies shortness of breath. Troponins negative 3. Echocardiogram completed revealed ejection fraction between 55 and 60%, mild mitral regurgitation, and mild tricuspid regurgitation. PHYSICAL EXAM: VITAL SIGNS: Reviewed. GENERAL: Well-developed in no acute distress. NECK: Supple. No JVD or thyromegaly LUNGS: Respirations even and unlabored. Lungs essentially clear to auscultation bilaterally. HEART: Regular rate and rhythm. S1 and S2 heard. EXTREMITIES: Normal range of motion. No clubbing or cyanosis. Peripheral pulses intact. No lower extremity edema ASSESSMENT: Chest pain, atypical for angina Coronary artery disease status post recent PCI in the setting of myocardial infarction August 2019 maintained on dual antiplatelet therapy Hypertension Dyslipidemia Chronic neck and back pain, musculoskeletal PLAN: An acute coronary event has been ruled out Increase lisinopril to 10mg BID for optimal blood pressure control Discontinue IV heparin Patient stable for discharge from a cardiac perspective. Will defer to internal medicine Patient to follow up outpatient with Dr. Hilliard Nurse practitioner note has been reviewed by physician. Signing provider agrees with the documented findings, assessment, and plan of care. Objective - Vital Signs Vital signs: Vital Signs Temp 97.8 F 04/20/20 08:28 Pulse 74 04/20/20 08:28 Resp 20 04/20/20 09:00 BP 150/75 04/20/20 08:28 Pulse Ox 98 04/20/20 08:28 Intake & Output 04/19/20 04/20/20 04/20/20 18:59 06:59 18:59 Intake Total 79.03 Output Total 795 Balance -715.97 Weight 52.617 kg Intake: Intake, IV Titration 79.03 Amount Heparin Sod,Pork in 0.45% 79.03 NaCl 25,000 unit In 0.45 % NaCl 1 250ml.bag @ 12 UNITS/KG/HR 6.314 mls/hr IV .Q24H DANILO Rx#: [id number] Oral 0 Output: Urine 795 Other: Voiding Method Toilet Toilet # Voids 1 1 - Labs CBC & Chem 7: 04/19/20 07:32 04/19/20 08:10 Labs: Abnormal Lab Results - Last 24 Hours (Table) 04/19/20 04/20/20 Range/Units 22:29 06:03 APTT 68.9 H 56.8 H (22.0-30.0) sec
[2020-04-20] MEDS ORDERED: lisinopriL 10 MG TAB PO SCH (10:45)
[2020-04-20 11:42] VITALS: BP 143/67
== END 2020-04-20 12:21 | disposition home or self-care (01) ==
LOC: EC 07:01 → 3NCARDOBS 09:56
PROVIDERS: ADMIT Internal Medicine; ATTEND Internal Medicine
DX: R07.9 Chest pain, unspecified (principal); E78.5 Hyperlipidemia, unspecified; G89.29 Other chronic pain; I08.1 Rheumatic disorders of both mitral and tricuspid valves; I10 Essential (primary) hypertension; I25.110 Atherosclerotic heart disease of native coronary artery with unstable angina pectoris; I25.2 Old myocardial infarction; Z79.02 Long term (current) use of antithrombotics/antiplatelets; Z79.82 Long term (current) use of aspirin; Z79.899 Other long term (current) drug therapy; Z98.61 Coronary angioplasty status
CPT/HCPCS: 93005 ×2; 96366 ×3; 96376; 96365; 99291; 36415; 93306; 80061; 80053; 83735; 84484; 85025; 85610; 85730 ×2; 71046; G0378 ×2; J1644 ×2

== ENCOUNTER 2021-09-08 07:47 | Observation (INO) | payer MEDICARE ==
[2021-09-08] MEDS ORDERED: ASPIRIN 81 MG PO STA (07:55)
--- NOTE | 2021-09-08 08:16 | ED ---
Chest Pain HPI - General Chief Complaint: Chest Pain Stated Complaint: Chest pain Time Seen by Provider: 09/08/21 07:54 Source: patient, RN notes reviewed Mode of arrival: ambulatory Limitations: no limitations - History of Present Illness Initial Comments: This an 86-year-old female presents emergency Department chief complaint of chest pain. Patient states pain started around 5 AM. Patient states that she does have 4 prior cardiac stents in which she states that she had some nitro at home and she took it. Patient states nitro for cough or pain with this time. Patient does have history of hypertension and sees Dr. Hilliard. Her last cardiac stent was 2 years ago. Patient states she did have an episode of chest pain 5 days ago at home and was seen at outside facility and discharged. Patient states pain seems to be coming on more frequently. Patient denies any abdominal pain patient does admit the pain radiated to her shoulder region denies any back pain no abdominal complaints associated symptoms. - Related Data Home Medications Medication Instructions Recorded Confirmed Aspirin EC [Ecotrin Low Dose] 81 mg PO DAILY 09/06/19 04/19/20 Calcium Carbonate [Calcium] 600 mg PO HS 09/06/19 04/19/20 Fish Oil W/Vitamin D3(Unknown Dose) 1 cap PO DAILY 09/06/19 04/19/20 Garlic 1 tab PO DAILY 09/06/19 04/19/20 Latanoprost/Pf [Latanoprost 0.005% 1 drop BOTH EYES HS 09/07/19 04/19/20 Eye Drop] Halobetasol Propionate [Ultravate 1 applic TOPICAL DAILY PRN 04/19/20 04/19/20 0.05%] Previous Rx's Medication Instructions Recorded Atorvastatin [Lipitor] 80 mg PO HS #30 tab 09/10/19 Clopidogrel [Plavix] 75 mg PO DAILY #30 tab 09/10/19 Nitroglycerin Sl Tabs [Nitrostat] 0.4 mg SUBLINGUAL Q5M PRN #25 tab 09/10/19 lisinopriL [Zestril] 10 mg PO BID #60 tab 04/20/20 Allergies Allergy/AdvReac Type Severity Reaction Status Date / Time No Known Allergies Allergy Verified 09/08/21 08:29 Review of Systems ROS Statement: Those systems with pertinent positive or pertinent negative responses have been documented in the HPI. ROS Other: All systems not noted in ROS Statement are negative. EKG Findings - EKG Comments: EKG Findings:: EKG performed at 17:50 sinus bradycardia with a rate of 47 IA 137 QRS 89 QT/QTC 435/396 Past Medical History Past Medical History: Eye Disorder, Hypertension Additional Past Medical History / Comment(s): Glaucoma, DJD Last Myocardial Infarction Date:: Aug 2019 History of Any Multi-Drug Resistant Organisms: None Reported Past Surgical History: Cholecystectomy Additional Past Surgical History / Comment(s): stent placed 2019 Past Anesthesia/Blood Transfusion Reactions: No Reported Reaction Date of Last Stent Placement:: 09/07/19 Past Psychological History: No Psychological Hx Reported Smoking Status: Never smoker Past Alcohol Use History: None Reported Past Drug Use History: None Reported - Past Family History Father Additional Family Medical History / Comment(s): Father had heart problems. He was a smoker. Family Family Medical History: No Reported History General Exam Limitations: no limitations General appearance: alert, in no apparent distress Head exam: Present: atraumatic, normocephalic, normal inspection Eye exam: Present: normal appearance, PERRL, EOMI. Absent: scleral icterus, conjunctival injection, periorbital swelling ENT exam: Present: normal exam, mucous membranes moist Neck exam: Present: normal inspection, full ROM. Absent: tenderness, meningismus, lymphadenopathy Respiratory exam: Present: normal lung sounds bilaterally. Absent: respiratory distress, wheezes, rales, rhonchi, stridor Cardiovascular Exam: Present: normal rhythm, bradycardia, normal heart sounds. Absent: regular rate, systolic murmur, diastolic murmur, rubs, gallop, clicks GI/Abdominal exam: Present: soft, normal bowel sounds. Absent: distended, tenderness, guarding, rebound, rigid Extremities exam: Present: normal capillary refill. Absent: pedal edema Course Vital Signs 09/08/21 07:48 Temperature 97.1 F L Pulse Rate 60 Respiratory 18 Rate Blood Pressure 133/60 O2 Sat by Pulse 98 Oximetry Chest Pain MDM - MDM 86-year-old female presented for chest pain she did take nitro prior arrival which alleviated her symptoms. She has extensive chronic history. Patient be admitted for cardiac observation and repeat troponin, cardiology evaluation. Disposition Clinical Impression: Chest pain Disposition: ADMITTED IP TO THIS HOSP Condition: Fair Referrals: Bryon Gao DO [Primary Care Provider] - 1-2 days
[2021-09-08 08:19] LABS: Basophils % (A) 1 %; Eosinophils # (A) 0.1 k/uL (0-0.7); Eosinophils % (A) 1 %; HCT 40.9 % (34.0-46.0); HGB 13.6 gm/dL (11.4-16.0); Lymphocytes # (A) 1.7 k/uL (1.0-4.8); Lymphocytes % (A) 25 %; MCH 32.7 pg (25.0-35.0); MCHC 33.4 g/dL (31.0-37.0); MCV 98.1 fL (80.0-100.0); Mean Platelet Volume 7.7; Monocytes # (A) 0.4 k/uL (0-1.0); Monocytes % (A) 6 %; Neutrophils # (A) 4.4 k/uL (1.3-7.7); Neutrophils % (A) 65 %; Platelet Count 231 k/uL (150-450); RBC 4.16 m/uL (3.80-5.40); RDW 12.7 % (11.5-15.5); WBC 6.8 k/uL (3.8-10.6)
[2021-09-08 08:30] LABS: Albumin 4.1 g/dL (3.5-5.0); Calcium 9.4 mg/dL (8.4-10.2); Magnesium 1.9 mg/dL (1.6-2.3); Partial Thromboplastin Time 23.5 sec (22.0-30.0); Potassium 3.6 mmol/L (3.5-5.1); Prothrombin Time 10.7 sec (9.0-12.0); Total Bilirubin 1.2 mg/dL (0.2-1.3); Total Protein 6.7 g/dL (6.3-8.2)
--- NOTE | 2021-09-08 08:33 | XR ---
EXAMINATION TYPE: XR chest 2V DATE OF EXAM: 09/08/2021 COMPARISON: 04/19/2020 HISTORY: 86-year-old female with left-sided chest pain today TECHNIQUE: PA and lateral views FINDINGS: Heart upper limits of normal in size. Cardiac stents noted. Mild atherosclerotic arch calcifications. Hyperinflation. Some strandy atelectasis in the lower lungs. No consolidation or pleural effusion. A nterior wedging of a midthoracic vertebral body with approximately 30% anterior height loss is new co mpared to 04/19/2020. IMPRESSION: 1. COPD. Some strandy atelectasis at the lower lungs. Otherwise, no acute cardiopulmonary process see n. 2. Anterior wedge deformity of a midthoracic vertebral body is age indeterminate but new compared to 04/19/2020. There is 30% anterior height loss. Correlate for any focal pain at this level.
[2021-09-08] MEDS ORDERED: NITROGLYCERIN SL TABS 0.4 MG TAB SUBLINGUAL PRN (08:54)
[2021-09-08] MEDS: CLOPIDOGREL 75 MG TAB PO SCH (09:59)
[2021-09-08] MEDS: lisinopriL 10 MG TAB PO SCH ×2 (09:59→20:01)
[2021-09-08] MEDS ORDERED: HEPARIN SODIUM 1,000 UN/ML (10ML VL) IV ONE (10:51)
[2021-09-08] MEDS ORDERED: HEPARIN SODIUM 1,000 UN/ML (10ML VL) IV PRN (10:51)
[2021-09-08] MEDS ORDERED: HEPARIN SOD,PORK IN 0.45% NACL 25,000 UNIT in 0.45% NACL 1 250ML.BAG IV SCH (11:00)
--- NOTE | 2021-09-08 13:02 | P.CRDCN ---
History of Present Illness Consult date: 09/08/21 History of present illness: This is a 86-year-old female with history of ischemic heart disease with a previous non-STEMI and stent placement of the LAD, both proximally and in mid segment, comes for evaluation of chest pains.[facility]. At 5:00 this morning patient woke up with chest pain which was like a tight feeling. Not associated with any nausea, vomiting or sweating. No shortness of breath. She took 3 nitroglycerin with relief. See felt fatigued afterwards. Finally patient came to the emergency room. EKG did not reveal any acute changes. She seemed to be comfortable at the time of my examination. Today. We'll continue to monitor her enzymes. Get an echocardiogram. Further recommendations depend upon the clinical course . Past Medical History Past Medical History: Eye Disorder, Hypertension Additional Past Medical History / Comment(s): Glaucoma, DJD Last Myocardial Infarction Date:: Aug 2019 History of Any Multi-Drug Resistant Organisms: None Reported Past Surgical History: Cholecystectomy Additional Past Surgical History / Comment(s): stent placed 2019 Past Anesthesia/Blood Transfusion Reactions: No Reported Reaction Date of Last Stent Placement:: 09/07/19 Past Psychological History: No Psychological Hx Reported Additional Psychological History / Comment(s): Pt reside alone. She is independent. Smoking Status: Never smoker Past Alcohol Use History: None Reported Past Drug Use History: None Reported - Past Family History Father Additional Family Medical History / Comment(s): Father had heart problems. He was a smoker. Family Family Medical History: No Reported History Medications and Allergies Home Medications Medication Instructions Recorded Confirmed Type Aspirin EC [Ecotrin Low Dose] 81 mg PO DAILY 09/06/19 09/08/21 History Latanoprost/Pf [Latanoprost 0.005% 1 drop BOTH EYES HS 09/07/19 09/08/21 History Eye Drop] Atorvastatin [Lipitor] 80 mg PO DAILY 09/08/21 09/08/21 History Calcium W/Vitamin D3 1200mg/600iu 1 tab PO HS 09/08/21 09/08/21 History Fish Oil 2400mg W/[place]-3 720mg 1 cap PO HS 09/08/21 09/08/21 History Vitamin B Complex 1 cap PO HS 09/08/21 09/08/21 History Allergies Allergy/AdvReac Type Severity Reaction Status Date / Time No Known Allergies Allergy Verified 09/08/21 09:15 Physical Exam Vitals: Vital Signs Temp Pulse Pulse Resp BP BP Pulse Ox 09/08/21 10:15 97.8 F 60 14 138/71 97 09/08/21 08:58 65 18 118/65 98 09/08/21 07:48 97.1 F L 60 18 133/60 98 Intake and Output 09/07/21 09/08/21 09/08/21 22:59 06:59 14:59 Other: Weight 47.627 kg GENERAL EXAM: Patient is alert and oriented and doesn't appear to be in any acute distress HEENT: Normocephalic. Normal reaction of pupils, equal size, normal range of extraocular motion. No erythema or exudates in the throat. NECK: No masses, no nuchal rigidity. CHEST: No chest wall deformity. LUNGS: [Equal air entry with no crackles or wheeze.] HEART: [S1 and S2 normal with no audible mumurs or gallops. Regular rhythm, femorals equal on both sides..] ABDOMEN: No hepatosplenomegaly, normal bowel sounds, no guarding or rigidity. SKIN: No rashes CENTRAL NERVOUS SYSTEM: No focal deficits. EXTREMITIES: [No cyanosis, clubbing or edema.] Results 09/08/21 08:08 09/08/21 08:08 Cardiac Enzymes 09/08/21 09/08/21 09/08/21 Range/Units 08:08 08:08 11:07 AST 30 (14-36) U/L Troponin I <0.012 <0.012 (0.000-0.034) ng/mL Coagulation 09/08/21 Range/Units 08:08 PT 10.7 (9.0-12.0) sec APTT 23.5 (22.0-30.0) sec CBC 09/08/21 Range/Units 08:08 WBC 6.8 (3.8-10.6) k/uL RBC 4.16 (3.80-5.40) m/uL Hgb 13.6 (11.4-16.0) gm/dL Hct 40.9 (34.0-46.0) % Plt Count 231 (150-450) k/uL Comprehensive Metabolic Panel 09/08/21 Range/Units 08:08 Sodium 141 (137-145) mmol/L Potassium 3.6 (3.5-5.1) mmol/L Chloride 105 (98-107) mmol/L Carbon Dioxide 29 (22-30) mmol/L BUN 13 (7-17) mg/dL Creatinine 0.87 (0.52-1.04) mg/dL Glucose 102 H (74-99) mg/dL Calcium 9.4 (8.4-10.2) mg/dL AST 30 (14-36) U/L ALT 19 (4-34) U/L Alkaline Phosphatase 59 (38-126) U/L Total Protein 6.7 (6.3-8.2) g/dL Albumin 4.1 (3.5-5.0) g/dL Current Medications Generic Name Dose Route Start Last Admin Trade Name Freq PRN Reason Stop Dose Admin Aspirin 325 mg 09/09/21 09:00 Aspirin 325 Mg Tab PO DAILY [facility] Atorvastatin Calcium 80 mg 09/08/21 21:00 Atorvastatin 80 Mg Tab PO HS [facility] Clopidogrel Bisulfate 75 mg 09/08/21 09:00 09/08/21 09:59 Clopidogrel 75 Mg Tab PO 75 mg DAILY [facility] Administration Heparin Sodium (Porcine) 0 unit 09/08/21 10:51 Heparin Sodium 1,000 Un/Ml (10ml Vl) IV PER PROTOCOL PRN Low PTT Protocol Heparin Sodium/Sodium Chloride 250 mls @ 5.715 mls/hr 09/08/21 11:00 09/08/21 11:21 25,000 unit/ Sodium Chloride IV 12 units/kg/hr .Q24H DANILO 5.715 mls/hr Administration Protocol 12 UNITS/KG/HR Lisinopril 10 mg 09/08/21 09:00 09/08/21 09:59 Lisinopril 10 Mg Tab PO 10 mg BID DANILO Administration Nitroglycerin 0.4 mg 09/08/21 08:54 Nitroglycerin Sl Tabs 0.4 Mg Tab SUBLINGUAL Q5M PRN Chest Pain Intake and Output 09/07/21 09/08/21 09/08/21 22:59 06:59 14:59 Other: Weight 47.627 kg Patient Weight 09/09/21 06:59 Weight 47.627 kg 09/08/21 08:08 09/08/21 08:08 Assessment and Plan (1) History of placement of stent in LAD coronary artery Current Visit: Yes Status: Acute Code(s): Z95.5 - PRESENCE OF CORONARY ANGIOPLASTY IMPLANT AND GRAFT SNOMED Code(s): 328123982 (2) Chest pain Current Visit: Yes Status: Acute Code(s): R07.9 - CHEST PAIN, UNSPECIFIED SNOMED Code(s): 93405202 Plan: Heparin protocol.. Follow cardiac enzymes. Nitrates and beta blockers and aspirin. May require invasive or noninvasive workup
--- NOTE | 2021-09-08 15:05 | P.HPIM ---
History of Present Illness H&P Date: 09/08/21 (delayed charting seen at 1125) Chief Complaint: chest pain Patient is 86-year-old female with known coronary artery disease status post stenting 4 in [address] Hilliard, dyslipidemia, and chronic neck pain who presented to the ER with complaints of chest pain. In the ER she underwent an extensive evaluation. EKG revealed sinus bradycardia with no significant ST- T wave changes. Initial troponin was negative. She was started on heparin in the ER, she was not started on a beta robert due to her bradycardia. Arrangements were made for admission. Patient seen and examined at bedside. She reports that she woke up this morning and initially was having some neck pain and ringing in her ears (which is typical for her with her degenerative disc disease). She then noticed a pressure over her left chest wall that radiated to just behind her arm. This was associated with a lightheaded feeling. She denies any associated numbness, tingling, nausea, vomiting, diaphoresis. She took 3 nitros which seemed to relieve the pain. She remained chest pain-free in the ER. Of note she also presented to an outside hospital approximately 5 days ago with chest pain relieved by nitroglycerin was asked to follow-up with cardiology. She has not made a follow-up appointment at this time. She denies any recent cough, cold, fever, flu, nausea, vomiting, diarrhea, dysuria. She follows with Dr. East and last saw him in April 2021. She has not run out of her aspirin or Lipitor. She has been going to the chiropractor and receiving massages for her neck pain. She has not had an MRI in the past that she is aware of. She has not seen physical therapy. Pertinent positives and negatives as discussed in HPI, a complete review of systems was performed and all other systems are negative. General: non toxic, no distress, appears younger than stated age Derm: warm, dry Head: atraumatic, normocephalic, symmetric Eyes: EOMI, no lid lag, anicteric sclera, pupils equal round reactive to light ENT: Nose and ears atraumatic, no thrush, no pharyngeal erythema Neck: No thyromegaly, no cervical lymphadenopathy, trachea midline, supple Mouth: no lip lesion, mucus membranes moist Cardiovascular: S1S2 reg, no murmur, positive posterior tibial pulse bilateral, no edema, capillary refill less than 2 seconds Lungs: clear to ascultation bilateral, no ronchi, no rales, no wheeze, no accessory muscle use Abdominal: soft, nontender to palpation, no guarding, no appreciable organomegaly, normal bowel sounds Ext: no gross muscle atrophy, muscle strength muscle strength 5 out of 5 in all 4 extremities, no contractures Neuro: CN II-XI grossly intact, light touch intact all 4 extremities, finger to nose within normal limits, Psych: Alert, oriented, appropriate affect Chest pain, atypical Sinus bradycardis -Continue with heparin drip -Aspirin, Lipitor -Nothing by mouth after midnight -Cardiology consult - follow troponin - tele Necl pain with DJD -Suggest outpatient follow-up with MRI consider physical therapy -Depending on results of MRI could also consider injections. Dyslipidemia -Statin and fish oil The patient is placed in observation with an anticipated less than 2 midnight stay for evaluation of chest pain CODE STATUS:Full Code DVT prophylaxis: Heparin gtt Discussed with: patient, nursing Anticipated discharge date: in 1-[address]: home A total of 65 minutes was spent on the care of this complex patient more than 50% of the time was spent in counseling and care coordination. Past Medical History Past Medical History: Eye Disorder, Hypertension Additional Past Medical History / Comment(s): Glaucoma, DJD Last Myocardial Infarction Date:: Aug 2019 History of Any Multi-Drug Resistant Organisms: None Reported Past Surgical History: Cholecystectomy Additional Past Surgical History / Comment(s): stent placed 2019 Past Anesthesia/Blood Transfusion Reactions: No Reported Reaction Date of Last Stent Placement:: 09/07/19 Past Psychological History: No Psychological Hx Reported Additional Psychological History / Comment(s): Pt reside alone. She is independent. Smoking Status: Never smoker Past Alcohol Use History: None Reported Past Drug Use History: None Reported - Past Family History Father Additional Family Medical History / Comment(s): Father had heart problems. He was a smoker. Family Family Medical History: No Reported History Medications and Allergies Home Medications Medication Instructions Recorded Confirmed Type Aspirin EC [Ecotrin Low Dose] 81 mg PO DAILY 09/06/19 09/08/21 History Latanoprost/Pf [Latanoprost 0.005% 1 drop BOTH EYES HS 09/07/19 09/08/21 History Eye Drop] Atorvastatin [Lipitor] 80 mg PO DAILY 09/08/21 09/08/21 History Calcium W/Vitamin D3 1200mg/600iu 1 tab PO HS 09/08/21 09/08/21 History Fish Oil 2400mg W/[place]-3 720mg 1 cap PO HS 09/08/21 09/08/21 History Vitamin B Complex 1 cap PO HS 09/08/21 09/08/21 History Allergies Allergy/AdvReac Type Severity Reaction Status Date / Time No Known Allergies Allergy Verified 09/08/21 09:15 Physical Exam Osteopathic Statement: *. No significant issues noted on an osteopathic structural exam other than those noted in the History and Physical/Consult. Vitals: Vital Signs Temp Pulse Pulse Resp BP BP Pulse Ox 09/08/21 14:28 97.6 F 72 16 149/67 98 09/08/21 10:15 97.8 F 60 14 138/71 97 09/08/21 08:58 65 18 118/65 98 09/08/21 07:48 97.1 F L 60 18 133/60 98 Intake and Output 09/08/21 09/08/21 09/08/21 06:59 14:59 22:59 Intake Total 120 Balance 120 Intake: Oral 120 Other: # Voids 2 Weight 47.627 kg Results CBC & Chem 7: 09/08/21 08:08 09/08/21 08:08 Labs: Abnormal Lab Results - Last 24 Hours (Table) 09/08/21 Range/Units 08:08 Glucose 102 H (74-99) mg/dL Thrombosis Risk Factor Assmnt - Choose All That Apply Each Risk Factor Represents 3 Points: Age 75 years or older Thrombosis Risk Factor Assessment Total Risk Factor Score: 3 Thrombosis Risk Factor Assessment Level: Moderate Risk
[2021-09-08] MEDS ORDERED: ATORVASTATIN 80 MG TAB PO SCH (21:00)
[2021-09-09 06:31] LABS: INR 1.1 (<1.2); Partial Thromboplastin Time 50.8 sec (22.0-30.0); Prothrombin Time 11.4 sec (9.0-12.0)
[2021-09-09] MEDS: CLOPIDOGREL 75 MG TAB PO SCH (08:05)
[2021-09-09] MEDS: lisinopriL 10 MG TAB PO SCH (08:05)
[2021-09-09] MEDS ORDERED: ASPIRIN 81 MG PO SCH (09:00)
[2021-09-09] MEDS ORDERED: ASPIRIN 325 MG TAB PO SCH (09:00)
[2021-09-09] MEDS ORDERED: CAFFEINE CITRATE 60 MG/3 ML VIAL IV PRN (09:21)
[2021-09-09] MEDS ORDERED: REGADENOSON 0.4 MG/5 ML SYRINGE IV PRN (09:21)
[2021-09-09] MEDS ORDERED: AMINOPHYLLINE 500 MG/20 ML VIAL IV PRN (09:21)
[2021-09-09 10:18] LABS: Basophils # (A) 0.03 X 10*3/uL (0.00-0.10); Basophils % (A) 0.5 %; Eosinophils # (A) 0.09 X 10*3/uL (0.04-0.35); Eosinophils % (A) 1.6 %; HCT 34.8 % (37.2-46.3); HGB 11.1 g/dL (12.0-15.0); Immature Grans, Automated 0.2 %; Lymphocytes # (A) 1.65 X 10*3/uL (0.90-5.00); Lymphocytes % (A) 29.8 %; MCH 31.3 pg (27.0-32.0); MCHC 31.9 g/dL (32.0-37.0); Mean Platelet Volume 10.4 fL (9.5-12.2); Monocytes # (A) 0.47 X 10*3/uL (0.20-1.00); Monocytes % (A) 8.5 %; NRBC Per 100 WBC 0 /100 WBCS (0.0-0.0); Neutrophils # (A) 3.28 X 10*3/uL (1.80-7.70); Neutrophils % (A) 59.4 %; Platelet Count 186 X 10*3/uL (140-440); RBC 3.55 X 10*6/uL (4.10-5.20); RDW 12.4 % (11.5-14.5); WBC 5.53 X 10*3/uL (4.50-10.00)
[2021-09-09 10:20] LABS: Chol/HDL Ratio 2.32 Ratio; LDL Cholesterol,Calculated 59.4 mg/dL (0.0-131.0)
--- NOTE | 2021-09-09 11:15 | P.PN ---
Subjective This is a pleasant 84-year-old female past medical history significant for coronary artery disease with previous NSTEMI and stent placement in the LAD both proximally and mid segment in 08/2019, Prior PCI to first OM branch of left circumflex and proximal left circumflex in 08/2019, hypertension, dyslipidemia, mitral regurgitation and chronic back pain. She follows in the office with Dr. Hilliard. We have been asked to see in consultation for chest pain. [facility]. At 5:00 this morning patient woke up with chest pain which was like a tight feeling. Not associated with any nausea, vomiting or sweating. No shortness of breath. She took 3 nitroglycerin with relief. See felt fatigued afterwards. Patient seen and examined at bedside, no acute distress. She denies any chest pain or shortness of breath. EKG did not reveal any acute changes. Troponin was negative 3. Patient's chest pain has resolved. Telemetry reviewed patient in sinus mechanism, heart rate 4660s. She is currently maintained on aspirin 81 mg daily, atorvastatin 80 mg nightly, Plavix 75 mg daily, lisinopril 10 mg twice a day Blood pressure 122/59, heart rate 54, afebrile, oxygen saturation is greater than 92% on room air GENERAL: Well-appearing, well-nourished and in no acute distress. NECK: Supple without JVD or thyromegaly. LUNGS: Breath sounds clear to auscultation bilaterally. Respiration equal and unlabored. No wheezes, rales or rhonchi. HEART: Regular rate and rhythm without murmurs, rubs or gallops. S1 and S2 heard. EXTREMITIES: Normal range of motion, no edema. No clubbing or cyanosis. Peripheral pulses intact. ASSESSMENT Chest pain, atypical, troponin syndrome has ruled out History of coronary artery disease status post PCI to the LAD and circumflex in 08/2019 Hypertension Dyslipidemia PLAN An acute coronary event has been ruled out with no EKG evidence of ischemia and negative cardiac enzymes. Obtain 2D echocardiogram and doppler study to assess cardiac structure and function. Perform Lexiscan stress test to assess for stress induced cardiac ischemia. If abnormal will consider coronary angiography. If stress test is negative okay to discharge from cardiology perspective Follow up with Dr. Hilliard outpatient Thank you kindly for this consultation. Nurse Practitioner note has been reviewed, I agree with a documented findings and plan of care. Patient was seen and examined. Objective - Vital Signs Vital signs: Vital Signs Temp 97.6 F 09/09/21 07:00 Pulse 54 L 09/09/21 07:00 Resp 16 09/09/21 07:00 BP 122/57 09/09/21 07:00 Pulse Ox 98 09/09/21 07:00 Intake & Output 09/08/21 09/09/21 09/09/21 18:59 06:59 18:59 Intake Total 282.101 67.627 19.145 Balance 282.101 67.627 19.145 Weight 47.627 kg Intake: Intake, IV Titration 42.101 67.627 19.145 Amount Heparin Sod,Pork in 0.45% 42.101 67.627 19.145 NaCl 25,000 unit In 0.45 % NaCl 1 250ml.bag @ 12 UNITS/KG/HR 5.715 mls/hr IV .Q24H DANILO Rx#: [id number] Oral 240 Other: # Voids 2 1 1 - Labs CBC & Chem 7: 09/09/21 06:01 09/08/21 08:08 Labs: Abnormal Lab Results - Last 24 Hours (Table) 09/08/21 09/09/21 09/09/21 Range/Units 17:19 06:01 06:01 RBC 3.55 L (4.10-5.20) X 10*6/uL Hgb 11.1 L (12.0-15.0) g/dL Hct 34.8 L (37.2-46.3) % MCV 98.0 H (80.0-97.0) fL MCHC 31.9 L (32.0-37.0) g/dL APTT 49.4 H 50.8 H (22.0-30.0) sec
--- NOTE | 2021-09-09 13:01 | ECHOF ---
Referral Reason:cp MEASUREMENTS -------- HEIGHT: 182.9 cm WEIGHT: 0.0 kg BP: RVIDd: 2.8 cm (< 3.3) IVSd: 0.7 cm (0.6 - 1.1) LVIDd: 4.2 cm (3.9 - 5.3) LVPWd: 1.3 cm (0.6 - 1.1) IVSs: 1.2 cm LVIDs: 3.5 cm LVPWs: 1.4 cm LA Diam: 3.1 cm (2.7 - 3.8) LAESV Index (A-L): 29.05 ml/m Ao Diam: 3.0 cm (2.0 - 3.7) AV Cusp: 1.3 cm (1.5 - 2.6) LA Diam: 3.9 cm (2.7 - 3.8) MV EXCURSION: 18.330 mm (> 18.000) MV EF SLOPE: 114 mm/s (70 - 150) EPSS: 1.1 cm MV E Arvin: 0.52 m/s MV DecT: 179 ms MV A Arvin: 0.24 m/s MV E/A Ratio: 2.20 RAP: 5.00 mmHg RVSP: 48.84 mmHg FINDINGS -------- Sinus rhythm. This was a technically adequate study. The left ventricular size is normal. Left ventricular wall thickness is normal. Overall left vent ricular systolic function is normal with, an EF between 55 - 60 %. The right ventricle is normal in size. Normal LA size by volume 22+/-6 ml/m2. The right atrial size is normal. There is mild aortic valve sclerosis. There is no evidence of aortic regurgitation. Mild mitral annular calcification present. Mild mitral regurgitation is present. The tricuspid valve appears structurally normal. Mild tricuspid regurgitation present. There is m oderate pulmonary hypertension. The right ventricular systolic pressure, as measured by Doppler, is 48.84mmHg. Trace/mild (physiologic) pulmonic regurgitation. The aortic root size is normal. There is no pericardial effusion. CONCLUSIONS -------- 1. Left ventricular wall thickness is normal. 2. Overall left ventricular systolic function is normal with, an EF between 55 - 60 %. 3. Normal LA size by volume 22+/-6 ml/m2. 4. There is mild aortic valve sclerosis. 5. Mild mitral regurgitation is present. 6. Mild tricuspid regurgitation present. 7. There is moderate pulmonary hypertension. 8. Trace/mild (physiologic) pulmonic regurgitation. 9. There is no pericardial effusion. FORMING PROCESS WORKER: Loren Chavarria RDCS
--- NOTE | 2021-09-09 14:09 | NM ---
EXAMINATION TYPE: NM stress lexiscan cardiolite DATE OF EXAM: 09/09/2021 COMPARISON: NONE HISTORY: Chest pain TECHNIQUE: After the intravenous administration of 9.3 mCi Tc 99m Sestamibi - Cardiolite resting SPE CT images acquired 60 minutes post injection. At peak stress 24.4 mCi Tc 99m Sestamibi - Stress images obtained 30 minutes post injection The patient was stressed with 0.4mg Lexiscan. FINDINGS: Poor map suggests a large defect along the inferior wall and to the cardiac apex which is reversible. Dyskinesia of the inferior wall near the cardiac apex is present. Ejection fraction is calculated to be 44 %, which is low. Normal greater than 50%.. IMPRESSION: 1. Large defect on the stress images with normal appearing resting images compatible stress-induced i schemic change along the inferior wall extending into the cardiac apex. 2. Low ejection fraction of 44%. 3. Dyskinesia of the inferior wall near the cardiac apex.
--- NOTE | 2021-09-09 14:45 | P.DS ---
Providers Date of admission: 09/08/21 08:49 Expected date of discharge: 09/09/21 Attending physician: Madhavi Amaya DO Consults: 09/08/21 08:54 Consult Physician Urgent Consulting Provider: Yo Hilliard Consult Reason/Comments: chest pain Do you want consulting provider notified?: Yes Primary care physician: Cooley [facility] Course: Unstable Angina Sinus bradycardia Patient is 86-year-old female with known coronary artery disease status post stenting 4 in [address] Hilliard, dyslipidemia, and chronic neck pain who presented to the ER with complaints of chest pain. In the ER she underwent an extensive evaluation. EKG revealed sinus bradycardia with no significant ST- T wave changes. Initial troponin was negative, and remained so after two additional re-checks. She was started on heparin in the ER, she was not started on a beta robert due to her bradycardia. Arrangements were made for admission. Seen by cardiology who recommended an echo and lexiscan stress test. Echo showed good EF with no WMA. Lexiscan, however, showed reversible ischemia in inferior wall. Pt was advised to undergo LHC, but she opted for medical management instead with outpatient follow up. She was started on plavix in addition to her aspirin, statin was continued, and lisinopril started as well. Also given nitro prn for pain. Neck pain with DJD -Suggest outpatient follow-up with MRI consider physical therapy -Depending on results of MRI could also consider injections. Dyslipidemia -Statin and fish oil continued Assessment: Gen: awake, alert HEENT: normocephalic, atraumatic, good hearing acuity, moist mucous membranes Resp: good air exchange, breathing comfortably with no accessory muscle use CVS: good distal perfusion x 4, GI: soft, NTTP, ND : no SPT, no CVAT, yuen catheter not present MSK: no pitting edema, no clubbing Neuro: non-focal, moving all extremities Psych: cooperative, euthymic mood Patient Condition at Discharge: Good Plan - Discharge Summary Discharge Rx Participant: No New Discharge Prescriptions: New Nitroglycerin Sl Tabs [Nitrostat] 0.4 mg SUBLINGUAL Q5M PRN #25 tab PRN Reason: Chest Pain Clopidogrel [Plavix] 75 mg PO DAILY 30 Days #30 tab lisinopriL [Zestril] 10 mg PO DAILY 30 Days #30 tab Continue Aspirin EC [Ecotrin Low Dose] 81 mg PO DAILY Latanoprost/Pf [Latanoprost 0.005% Eye Drop] 1 drop BOTH EYES HS Atorvastatin [Lipitor] 80 mg PO DAILY Fish Oil 2400mg W/[place]-3 720mg 1 cap PO HS Vitamin B Complex 1 cap PO HS Calcium W/Vitamin D3 1200mg/600iu 1 tab PO HS Discharge Medication List Aspirin EC [Ecotrin Low Dose] 81 mg PO DAILY 09/06/19 [History] Latanoprost/Pf [Latanoprost 0.005% Eye Drop] 1 drop BOTH EYES HS 09/07/19 [History] Atorvastatin [Lipitor] 80 mg PO DAILY 09/08/21 [History] Calcium W/Vitamin D3 1200mg/600iu 1 tab PO HS 09/08/21 [History] Fish Oil 2400mg W/[place]-3 720mg 1 cap PO HS 09/08/21 [History] Vitamin B Complex 1 cap PO HS 09/08/21 [History] Clopidogrel [Plavix] 75 mg PO DAILY 30 Days #30 tab 09/09/21 [Rx] Nitroglycerin Sl Tabs [Nitrostat] 0.4 mg SUBLINGUAL Q5M PRN #25 tab 09/09/21 [Rx] lisinopriL [Zestril] 10 mg PO DAILY 30 Days #30 tab 09/09/21 [Rx] Follow up Appointment(s)/Referral(s): Yo Hilliard MD [STAFF PHYSICIAN] - 09/13/21 2:30 pm Bryon Gao DO [Primary Care Provider] - 1-2 days Activity/Diet/Wound Care/Special Instructions: Contact your doctor right away or go to the nearest hospital Emergency Room if you have: -Severe angina or chest pain or shortness of breath Follow up with [facility] You have an appointment with Dr. Hilliard on 09/13/2021 at 2:30PM Discharge Disposition: HOME SELF-CARE
--- NOTE | 2021-09-09 14:46 | EST ---
EXERCISE STRESS AGE: 86 SEX: F HT: 4'10" WT: 105 lbs PROTOCOL: Lexiscan Cardiolite STAGE: NA DURATION OF EXERCISE: NA HEART RATE REST: 54 BLOOD PRESSURE REST: 145/63 MAXIMUM HEART RATE ACHIEVED: 107 MAXIMUM BLOOD PRESSURE: 148/70 85% MPHR: 114 100% MPHR: 134 METS: NA INDICATIONS: Chest pressure CLINICAL INFORMATION: Baseline rhythm is sinus mechanism, rate of 54, normal intervals, right axis deviation, minor nonspecific ST-T wave changes. Baseline blood pressure 145/63 mmHg. Patient received injection of Lexiscan. Electrocardiographic monitoring revealed rare PVCs. There was no evidence of diagnostic ischemic ST deviation. Cardiolite was injected per protocol. CONCLUSION: 1. Nondiagnostic electrocardiograph stress testing with rare PVCs. 2. Nuclear images will be reported separately. MMODL / IJN: [id number] /
[2021-09-09 15:01] VITALS: BP 132/72; PULSE 81; RESP 18; TEMP 97.4
[2021-09-10] MEDS ORDERED: lisinopriL 10 MG TAB PO SCH (09:00)
[2021-09-10] MEDS ORDERED: ASPIRIN 81 MG PO SCH (09:00)
== END 2021-09-09 15:19 | disposition home or self-care (01) ==
LOC: EC 07:47 → 6NMEDSUR 08:49
PROVIDERS: ADMIT Internal Medicine; ATTEND Internal Medicine
DX: I25.110 Atherosclerotic heart disease of native coronary artery with unstable angina pectoris (principal); R00.1 Bradycardia, unspecified; I08.3 Combined rheumatic disorders of mitral, aortic and tricuspid valves; I27.20 Pulmonary hypertension, unspecified; G24.9 Dystonia, unspecified; I10 Essential (primary) hypertension; E78.5 Hyperlipidemia, unspecified; G89.29 Other chronic pain; M54.9 Dorsalgia, unspecified; M50.30 Other cervical disc degeneration, unspecified cervical region; M47.812 Spondylosis without myelopathy or radiculopathy, cervical region; H93.19 Tinnitus, unspecified ear; H40.9 Unspecified glaucoma; M19.90 Unspecified osteoarthritis, unspecified site; Z20.822 Contact with and (suspected) exposure to COVID-19; Z79.82 Long term (current) use of aspirin; Z79.02 Long term (current) use of antithrombotics/antiplatelets; Z79.899 Other long term (current) drug therapy; I25.2 Old myocardial infarction; Z95.5 Presence of coronary angioplasty implant and graft; Z90.49 Acquired absence of other specified parts of digestive tract; Z82.49 Family history of ischemic heart disease and other diseases of the circulatory system; Z81.2 Family history of tobacco abuse and dependence
CPT/HCPCS: 96376; 96365; 96366 ×2; 99285; 36415; 93005; 93017; 93306; 83880; 80061; 80053; 83735; 84484; 85025 ×2; 85610 ×2; 85730 ×2; 87635; 71046; 78452; G0378 ×2; A9500; J1644 ×2; J2785

== ENCOUNTER 2021-09-11 22:23 | Emergency (ER) | payer MEDICARE ==
--- NOTE | 2021-09-11 23:30 | ED ---
Abdominal Pain HPI - General Chief Complaint: Abdominal Pain Stated Complaint: Chest Pain Time Seen by Provider: 09/11/21 23:24 Source: patient, EMS Mode of arrival: EMS - History of Present Illness Initial Comments: This patient is an 86-year-old woman who presents with concern that she was feeling lightheaded and noted that her blood pressure was elevated. She states that it was up above 150 systolic at home. The patient here is entered as abdominal pain, and she states that she did briefly have some left lower quadrant pain that she described in triage but she states that that is not her concern and it is resolved now. The patient states that she had recently seen h er petroleum engineer and she had another medication added to her regimen she could not recall the name of that currently. Patient denied chest pain, dyspnea, diaphoresis, nausea or vomiting. There is no abdominal pain currently. No back pain. MD Complaint: abdominal pain, other Onset/Timin -: hour(s) Radiation: none Severity scale (1-10): 0 Improves With: nothing Worsens With: nothing Associated Symptoms: denies other symptoms - Related Data Home Medications Medication Instructions Recorded Confirmed Aspirin EC [Ecotrin Low Dose] 81 mg PO DAILY 09/06/19 09/08/21 Latanoprost/Pf [Latanoprost 0.005% 1 drop BOTH EYES HS 09/07/19 09/08/21 Eye Drop] Atorvastatin [Lipitor] 80 mg PO DAILY 09/08/21 09/08/21 Calcium W/Vitamin D3 1200mg/600iu 1 tab PO HS 09/08/21 09/08/21 Fish Oil 2400mg W/[place]-3 720mg 1 cap PO HS 09/08/21 09/08/21 Vitamin B Complex 1 cap PO HS 09/08/21 09/08/21 Previous Rx's Medication Instructions Recorded Clopidogrel [Plavix] 75 mg PO DAILY 30 Days #30 tab 09/09/21 Nitroglycerin Sl Tabs [Nitrostat] 0.4 mg SUBLINGUAL Q5M PRN #25 tab 09/09/21 lisinopriL [Zestril] 10 mg PO DAILY 30 Days #30 tab 09/09/21 Allergies Allergy/AdvReac Type Severity Reaction Status Date / Time No Known Allergies Allergy Verified 09/11/21 22:38 Review of Systems ROS Statement: Those systems with pertinent positive or pertinent negative responses have been documented in the HPI. ROS Other: All systems not noted in ROS Statement are negative. Constitutional: Denies: fever Eyes: Denies: vision change Respiratory: Denies: cough, dyspnea Cardiovascular: Denies: chest pain, palpitations, orthopnea, edema, syncope Gastrointestinal: Reports: abdominal pain (Resolved). Denies: nausea, vomiting, diarrhea, constipation Genitourinary: Denies: dysuria, hematuria Musculoskeletal: Denies: back pain Skin: Denies: rash Neurological: Denies: headache, weakness Past Medical History Past Medical History: Eye Disorder, Hypertension, Myocardial Infarction (PR) Additional Past Medical History / Comment(s): Glaucoma, DJD Last Myocardial Infarction Date:: Aug 2019 History of Any Multi-Drug Resistant Organisms: None Reported Past Surgical History: Cholecystectomy Additional Past Surgical History / Comment(s): stent placed 2019 Past Anesthesia/Blood Transfusion Reactions: No Reported Reaction Date of Last Stent Placement:: 09/07/19 Past Psychological History: No Psychological Hx Reported Smoking Status: Never smoker Past Alcohol Use History: None Reported Past Drug Use History: None Reported - Past Family History Father Additional Family Medical History / Comment(s): Father had heart problems. He was a smoker. Family Family Medical History: No Reported History General Exam General appearance: alert, in no apparent distress Head exam: Present: atraumatic, normocephalic Eye exam: Present: normal appearance. Absent: scleral icterus, conjunctival injection Neck exam: Present: normal inspection Respiratory exam: Present: normal lung sounds bilaterally. Absent: respiratory distress, wheezes, rales, rhonchi, stridor Cardiovascular Exam: Present: regular rate, normal rhythm, normal heart sounds. Absent: systolic murmur, diastolic murmur, rubs, gallop GI/Abdominal exam: Present: soft. Absent: distended, tenderness, guarding, rebound, rigid, mass, pulsatile mass Extremities exam: Present: normal inspection, normal capillary refill. Absent: pedal edema, calf tenderness Back exam: Present: normal inspection. Absent: CVA tenderness (R), CVA tenderness (L) Neurological exam: Present: alert Skin exam: Present: warm, dry, intact, normal color. Absent: rash Course Vital Signs 09/11/21 09/12/21 22:28 02:12 Pulse Rate 68 63 Respiratory 16 18 Rate Blood Pressure 146/71 136/70 O2 Sat by Pulse 96 95 Oximetry Medical Decision Making - Lab Data Result diagrams: 09/11/21 23:27 09/11/21 23:27 Lab Results 09/11/21 09/11/21 09/11/21 Range/Units 23:27 23:27 23:27 WBC 5.7 (3.8-10.6) k/uL RBC 3.68 L (3.80-5.40) m/uL Hgb 12.2 (11.4-16.0) gm/dL Hct 36.1 (34.0-46.0) % MCV 98.1 (80.0-100.0) fL MCH 33.1 (25.0-35.0) pg MCHC 33.7 (31.0-37.0) g/dL RDW 12.1 (11.5-15.5) % Plt Count 191 (150-450) k/uL MPV 8.1 Neutrophils % 57 % Lymphocytes % 31 % Monocytes % 8 % Eosinophils % 2 % Basophils % 1 % Neutrophils # 3.3 (1.3-7.7) k/uL Lymphocytes # 1.8 (1.0-4.8) k/uL Monocytes # 0.4 (0-1.0) k/uL Eosinophils # 0.1 (0-0.7) k/uL Basophils # 0.0 (0-0.2) k/uL Sodium 139 (137-145) mmol/L Potassium 4.3 (3.5-5.1) mmol/L Chloride 106 (98-107) mmol/L Carbon Dioxide 26 (22-30) mmol/L Anion Gap 7 mmol/L BUN 18 H (7-17) mg/dL Creatinine 0.83 (0.52-1.04) mg/dL Est GFR (CKD-EPI)AfAm 74 (>60 ml/min/1.73 sqM) Est GFR (CKD-EPI)NonAf 64 (>60 ml/min/1.73 sqM) Glucose 97 (74-99) mg/dL Calcium 9.4 (8.4-10.2) mg/dL Total Bilirubin 1.5 H (0.2-1.3) mg/dL AST 43 H (14-36) U/L ALT 21 (4-34) U/L Alkaline Phosphatase 51 (38-126) U/L Troponin I <0.012 (0.000-0.034) ng/mL Total Protein 6.4 (6.3-8.2) g/dL Albumin 3.7 (3.5-5.0) g/dL Amylase 87 (30-110) U/L Lipase 129 (23-300) U/L Urine Color Urine Appearance (Clear) Urine pH (5.0-8.0) Ur Specific [place] (1.001-1.035) Urine Protein (Negative) Urine Glucose (UA) (Negative) Urine Ketones (Negative) Urine Blood (Negative) Urine Nitrite (Negative) Urine Bilirubin (Negative) Urine Urobilinogen (<2.0) mg/dL Ur Leukocyte Esterase (Negative) Urine RBC (0-5) /hpf Urine WBC (0-5) /hpf Ur Squamous Epith Cells (0-4) /hpf Urine Bacteria (None) /hpf Urine Mucus (None) /hpf 09/12/21 Range/Units 00:39 WBC (3.8-10.6) k/uL RBC (3.80-5.40) m/uL Hgb (11.4-16.0) gm/dL Hct (34.0-46.0) % MCV (80.0-100.0) fL MCH (25.0-35.0) pg MCHC (31.0-37.0) g/dL RDW (11.5-15.5) % Plt Count (150-450) k/uL MPV Neutrophils % % Lymphocytes % % Monocytes % % Eosinophils % % Basophils % % Neutrophils # (1.3-7.7) k/uL Lymphocytes # (1.0-4.8) k/uL Monocytes # (0-1.0) k/uL Eosinophils # (0-0.7) k/uL Basophils # (0-0.2) k/uL Sodium (137-145) mmol/L Potassium (3.5-5.1) mmol/L Chloride (98-107) mmol/L Carbon Dioxide (22-30) mmol/L Anion Gap mmol/L BUN (7-17) mg/dL Creatinine (0.52-1.04) mg/dL Est GFR (CKD-EPI)AfAm (>60 ml/min/1.73 sqM) Est GFR (CKD-EPI)NonAf (>60 ml/min/1.73 sqM) Glucose (74-99) mg/dL Calcium (8.4-10.2) mg/dL Total Bilirubin (0.2-1.3) mg/dL AST (14-36) U/L ALT (4-34) U/L Alkaline Phosphatase (38-126) U/L Troponin I (0.000-0.034) ng/mL Total Protein (6.3-8.2) g/dL Albumin (3.5-5.0) g/dL Amylase (30-110) U/L Lipase (23-300) U/L Urine Color Yellow Urine Appearance Clear (Clear) Urine pH 6.5 (5.0-8.0) Ur Specific [place] 1.009 (1.001-1.035) Urine Protein Negative (Negative) Urine Glucose (UA) Negative (Negative) Urine Ketones Negative (Negative) Urine Blood Negative (Negative) Urine Nitrite Negative (Negative) Urine Bilirubin Negative (Negative) Urine Urobilinogen <2.0 (<2.0) mg/dL Ur Leukocyte Esterase Large H (Negative) Urine RBC 1 (0-5) /hpf Urine WBC 9 H (0-5) /hpf Ur Squamous Epith Cells 3 (0-4) /hpf Urine Bacteria Rare H (None) /hpf Urine Mucus Rare H (None) /hpf - EKG Data -: EKG Interpreted by [facility] EKG shows normal: sinus rhythm, axis (Normal), intervals (Normal), QRS complexes (Normal), ST-T waves (Normal) Rate: normal (Rate 63 bpm) Interpretation: normal EKG Disposition Clinical Impression: Hypertension, Gastroenteritis Disposition: HOME SELF-CARE Condition: Good Instructions (If sedation given, give patient instructions): Hypertension (ED) Is patient prescribed a controlled substance at d/c from ED?: No Referrals: Adis Bell MD [Primary Care Provider] - 1-2 days
[2021-09-11 23:53] LABS: Basophils % (A) 1 %; Eosinophils # (A) 0.1 k/uL (0-0.7); Eosinophils % (A) 2 %; HCT 36.1 % (34.0-46.0); HGB 12.2 gm/dL (11.4-16.0); Lymphocytes # (A) 1.8 k/uL (1.0-4.8); Lymphocytes % (A) 31 %; MCH 33.1 pg (25.0-35.0); MCHC 33.7 g/dL (31.0-37.0); MCV 98.1 fL (80.0-100.0); Mean Platelet Volume 8.1; Monocytes # (A) 0.4 k/uL (0-1.0); Monocytes % (A) 8 %; Neutrophils # (A) 3.3 k/uL (1.3-7.7); Neutrophils % (A) 57 %; Platelet Count 191 k/uL (150-450); RBC 3.68 m/uL (3.80-5.40); RDW 12.1 % (11.5-15.5); WBC 5.7 k/uL (3.8-10.6)
[2021-09-12 00:05] LABS: Calcium 9.4 mg/dL (8.4-10.2); Total Bilirubin 1.5 mg/dL (0.2-1.3)
[2021-09-12 00:10] LABS: Potassium 4.3 mmol/L (3.5-5.1); Total Protein 6.4 g/dL (6.3-8.2)
[2021-09-12 00:11] LABS: Albumin 3.7 g/dL (3.5-5.0)
[2021-09-12 00:48] LABS: Appearance,Urine Clear (Clear); Bacteria,Urine Rare /hpf; Bilirubin,Urine Negative (Negative); Blood,Urine Negative (Negative); Color,Urine Yellow; Glucose,Urine (UA) Negative (Negative); Ketones,Urine Negative (Negative); Leukocyte Esterase,Urine Large (Negative); Mucus,Urine Rare /hpf; Nitrite,Urine Negative (Negative); PH, Urine 6.5 (5.0-8.0); Protein,Urine Negative (Negative); RBC,Urine 1 /hpf (0-5); Specific Gravity,Urine 1.009 (1.001-1.035); Squamous Epithelial Cell,Urine 3 /hpf (0-4); Urobilinogen,Urine <2.0 mg/dL (<2.0); WBC,Urine 9 /hpf (0-5)
[2021-09-12 02:13] VITALS: RESP 18
[2021-09-12 03:11] VITALS: BP 134/86; PULSE 74
== END 2021-09-12 03:11 | disposition home or self-care (01) ==
LOC: EC 22:23
DX: K52.9 Noninfective gastroenteritis and colitis, unspecified (principal); I10 Essential (primary) hypertension; I25.2 Old myocardial infarction; Z79.82 Long term (current) use of aspirin; Z79.02 Long term (current) use of antithrombotics/antiplatelets; Z79.899 Other long term (current) drug therapy
CPT/HCPCS: 36415; 80053; 81001; 82150; 83690; 84484; 85025; 93005; 99284

== ENCOUNTER 2021-09-23 06:33 | Day surgery (SDC) | payer MEDICARE ==
[2021-09-20 09:46] VITALS: BMI 19.7
[~2021-09-23 06:33] MED LIST: ALPRAZolam 0.25 MG TAB PO PRN; ALPRAZolam 0.5 MG TAB PO PRN; NITROGLYCERIN SL TABS 0.4 MG TAB SUBLINGUAL PRN; SODIUM CHLORIDE 0.9% 1,000 ML in EMPTY BAG 1 BAG IV SCH
[2021-09-23] MEDS ORDERED: SODIUM CHLORIDE 0.9% 1,000 ML IV ONE (06:47)
[2021-09-23] MEDS ORDERED: ATORVASTATIN 80 MG TAB PO ONE (07:00)
[2021-09-23] MEDS ORDERED: HEPARIN SODIUM,PORCINE 2,500 UNIT in SODIUM CHLORIDE 0.9% 250 ML IRRIGATION PRN (07:00)
[2021-09-23] MEDS ORDERED: ASPIRIN 325 MG TAB PO ONE (07:00)
[2021-09-23] MEDS ORDERED: HEPARIN SODIUM,PORCINE 10,000 UNIT in SODIUM CHLORIDE 0.9% 1,000 ML IRRIGATION PRN (07:00)
[2021-09-23 07:09] VITALS: RESP 16; TEMP 97
[2021-09-23] MEDS ORDERED: LIDOCAINE 1% INJ 10MG/ML (20 ML MDV) ONE (07:29)
[2021-09-23] MEDS ORDERED: VERAPAMIL 2.5 MG/ML 2 ML AMP ONE (07:32)
[2021-09-23] MEDS ORDERED: MIDAZOLAM 2 MG/2 ML VIAL IV ONE (07:45)
[2021-09-23] MEDS ORDERED: LIDOCAINE 1% INJ 10MG/ML (20 ML MDV) SQ ONE (07:49)
[2021-09-23] MEDS ORDERED: IOPAMIDOL-370 125ML BTL INJ ONE (08:00)
[2021-09-23] MEDS ORDERED: RX INFO: IV CONTRAST WAS GIVEN 1 EACH MISC MISCELLANE PRN (08:09)
[2021-09-23] MEDS ORDERED: SODIUM CHLORIDE 0.9% 1,000 ML IV SCH (08:15)
--- NOTE | 2021-09-23 08:15 | P.PCN ---
Date of Procedure: 09/23/21 Operative Findings: CARDIAC CATHETERIZATION PERFORMING PHYSICIAN: Yo Hilliard MD, RPVI PROCEDURE PERFORMED: 1. Selective right and left coronary angiogram 2. Left heart catheterization INDICATION: This is an 86-year-old female patient was known CAD and prior stenting of the LAD and LCx was experiencing symptoms of chest discomfort. She underwent myocardial perfusion imaging stress test and that revealed inferior ischemia. In the light of that because she continues to have chest discomfort heart catheterization was advised COMPLICATION: None APPROACH: Right common femoral artery LEVEL OF SEDATION: Moderate with sedation length of 20 minutes PROCEDURE DESCRIPTION: After obtaining an informed consent, the patient was brought to cardiac dentures lab technician. Local anesthesia was performed using lidocaine subcutaneously. The right common femoral artery was cannulated using Seldinger technique under ultrasound guidance, the guidewire passed easily, following that we advanced a 6 [place] sheath dilator assembly, the wire and dilator were removed and sheath was flushed. Selective right and left coronary angiogram using a 6-[place] JR4 and JL catheters. Following that we did left heart catheterization using 6-[place] pigtail catheter. After that I did selective right common femoral artery angiogram The procedure was completed there was no complication. SELECTIVE CORONARY ANGIOGRAM: The right coronary artery: Is a large caliber vessel and a dominant vessel. The RCA has mild disease only. Distally bifurcates into PDA and PLV branches and both appeared to be angiographically normal Left main: Is angiographically normal. Bifurcates into LCx and LAD The left circumflex: The proximal left circumflex is a stented and the stent is patent. The LCx proximally gives rises into an OM1 which has mild disease only. The distal left circumflex appears to have an intermediate lesion in the range of 40-50%. Gives rise into a second OM which appeared to be angiographically normal. The left anterior descending artery: The proximal and mid LAD are stented and the stents are patent. The distal LAD appears to have a lesion in the range of 40-50% of the artery becomes small caliber vessel at that segment. HEMODYNAMICS: The LVEDP was 24 mmHg without significant gradient across aortic valve CONCLUSION: 1. Patent stents in the proximal and mid LAD. Intermediate lesion involving the distal LAD. The artery becomes small caliber vessel at that point 2. Patent stents in the LCx/OM system. Intermediate lesion involving the distal LCx. The artery becomes small caliber vessel at that point 3. Elevated left-sided filling pressure POSTPROCEDURE MANAGEMENT: Giving the above anatomy I advised maximize medical treatment and follow-up with the patient
[2021-09-23 16:53] VITALS: BP 125/57; PULSE 59
== END 2021-09-23 15:57 | disposition home or self-care (01) ==
LOC: CATHCVL 06:33
PROVIDERS: ATTEND Internal Medicine Interventional Cardiology
DX: I25.110 Atherosclerotic heart disease of native coronary artery with unstable angina pectoris (principal); I10 Essential (primary) hypertension; E78.00 Pure hypercholesterolemia, unspecified; Z95.5 Presence of coronary angioplasty implant and graft; Z20.822 Contact with and (suspected) exposure to COVID-19; E78.5 Hyperlipidemia, unspecified; Z82.49 Family history of ischemic heart disease and other diseases of the circulatory system; I34.0 Nonrheumatic mitral (valve) insufficiency; Z79.02 Long term (current) use of antithrombotics/antiplatelets; Z79.82 Long term (current) use of aspirin; Z79.899 Other long term (current) drug therapy
CPT/HCPCS: 93458; 87635; C1894; J2250; J2001; Q9967